=== PATIENT | female | born 1965 | race African-American/Black ===

== ENCOUNTER 2017-02-21 08:08 | Inpatient (IN) ==
[2017-02-21] MEDS ORDERED: SOLU-MEDROL IV ONE (08:32)
[2017-02-21] MEDS ORDERED: NS 1,000 ML IV ONE ×2 (08:33→10:07)
[2017-02-21 08:38] LABS: ALLEN TEST YES; BE 2.2 mmoll (-3.0-3.0); BLOOD TYPE ARTERIAL; DRAW SITE R RADIAL; METHB 1.4 % (0.0-1.5); O2(CT) 16.3 mL/dL (15.0-23.0); PCO2(98.6) 33 mmHg (35-45); SAMPLE BLOOD; SAO2 90.4 % (95.0-100.0); THB 13.4 g/dL (11.5-17.4); pH(98.6) 7.49 (7.35-7.45)
[2017-02-21 08:39] LABS: PO2(98.6) 49 mmHg (60-100)
[2017-02-21 08:40] LABS: MODALITY CANNULA
[2017-02-21 08:47] LABS: INR 1.02; PROTIME 10.7 Seconds (9.2-11.7); PTT 36.5 Seconds (22.0-36.0)
[2017-02-21 08:48] LABS: BASO% 0.9 % (0.0-0.8); EOS# 0.28 X1000 (0.0-0.7); EOS% 1.9 % (0.0-10.0); HEMATOCRIT 36.9 % (37.0-47.0); HEMOGLOBIN 13.2 g/dL (12.0-16.0); IMM GRAN# 0.14 X1000 (0.0-0.04); IMM GRAN% 0.9 % (0.0-0.5); LYMPH# 0.57 X1000 (1.2-3.4); LYMPH% 3.9 % (20.5-51.1); MANUAL DIFF NEEDED? NO; MCHC 35.8 g/dL (33-37); MCV 67.1 FL (81-99); MONO# 0.04 X1000 (0.11-0.59); MONO% 0.3 % (1.7-9.3); NEUT% 92.1 % (42.2-75.2); PLT 188 X1000 (130-400)
[2017-02-21 08:56] LABS: AGAP 20; ALBUMIN 2.5 g/dL (3.5-5.0); ALKALINE PHOSPHATASE 108 U/L (32-104); BUN 13 mg/dL (8-22); CALCIUM 8.9 mg/dL (8.8-10.2); CHLORIDE 92 mmol/L (98-107); CK PROFILE 15 U/L (24-173); COSMO 273; GOT 39 U/L (10-30); GPT 16 U/L (10-36); MAGNESIUM 1.8 mg/dL (1.5-2.7); POTASSIUM 3.2 mmol/L (3.5-5.1); SODIUM 136 mmol/L (136-145); TCO2 24 mmol/L (25-35); TOTAL PROTEIN 7.1 g/dL (6.3-8.3)
[2017-02-21] MEDS ORDERED: VANCOMYCIN 1 GM/NS 1 GM/250 ML IVPB IV ONE (09:25)
[2017-02-21] MEDS ORDERED: KLOR-CON PO ONE (09:31)
[2017-02-21] MEDS: ZOSYN 3.375 GM/NS 3.375 GM/50 ML IVPB IV SCH ×2 (10:00→15:39)
--- NOTE | 2017-02-21 10:18 | PROVIDER DOCUMENTATION ---
This chart was entered by Ko Bartlett Scribe, acting as scribe for Pradip Mariano MD. HPI-Respiratory General - General Chief Complaint: Possible Sepsis-D Stated Complaint: SOB Time Seen by Provider: 02/21/17 08:22 Source: patient Allergies/Adverse Reactions: Patient Allergies Allergy/AdvReac Type Severity Reaction Status Date / Time No Known Allergies Allergy Verified 02/21/17 08:16 Home Medications: Home Medication List Medication Instructions Recorded Confirmed Last Taken Type Azithromycin [Zithromax Z-Malcolm] 250 mg PO DIRECTED #1 pkg 02/10/17 02/21/17 Rx Lisinopril [Zestril] 5 mg PO DAILY #30 tablet 02/10/17 02/21/17 02/21/17 07:00 Rx - History of Present Illness-Resp Nature of Presenting Problem: patient is a 51 y/o F that presents to the ER with 2 days of shortness of breath that has gotten worse. Denies fever/chills, n/v/d, or chest pain. Reports cold symptoms x 1.5 weeks. pt has history of asthma. She received 2 breathing treatments en route. patient is not o2 at home and has not be intubated in the past. Her o2 saturation on arrival was 91% Quality of Pain: reports: tightness Severity in ED: reports: moderate, severe Onset/Duration: reports: gradual, other (1.5 weeks ago) Timing: reports: still present, getting worse Context: reports: recent URI. denies: out of meds Cough Quality/Degree: reports: moderate, dry cough Current Respiratory Medication Therapy: Initiated see nurses note Modifying Factors: worse with: coughing Associated Symptoms: reports: cough, shortness of breath, short of breath, wheezing. denies: fever/chills, flu-like symptoms, nasal congestion, nasal drainage Similar Symptoms Previously?: Yes Recently seen or treated by another doctor?: Yes Review of Systems - Adult - REVIEW OF SYSTEMS - ADULT Constitutional: denies: chills, fever Eyes: reports: no symptoms reported Ears, Nose, Mouth & Throat: denies: ear pain, sinus problem, throat pain Cardiovascular: denies: chest pain, palpitations, syncope Respiratory: reports: cough, shortness of breath, wheezing Gastrointestinal: denies: abdominal pain, nausea, vomiting Genitourinary: reports: no symptoms reported Musculoskeletal: reports: no symptoms reported Integumentary: reports: no symptoms reported Neurological: reports: no symptoms reported Psychiatric: reports: no symptoms reported Endocrine: reports: no symptoms reported Hematologic/Lymphatic: reports: no symptoms reported Allergic/Immunologic: reports: no symptoms reported All Other Systems: Reviewed and Negative Past History - Adult - PAST MEDICAL HISTORY-ADULT Review of Records: reports: Old Records Reviewed, Nursing Assessment Review, Medications Reviewed Cardiovascular: reports: HTN Respiratory: reports: asthma - PRIOR SURGERIES/PROCEDURES Surgical/Procedure History: reports: - IMMUNIZATION STATUS Childhood Immunizations: See Nurse Assessment Flu Vaccine: See Nurse Assessment - FAMILY HISTORY Family History: reviewed, not pertinent - SOCIAL HISTORY Smoking: cigarettes, less than 1 pack/day Alcohol Use Frequency: occasionally Living Situation: family Physical Exam-General - PHYSICAL EXAM-ADULT Initial Vital Signs Reviewed: Yes - CONSTITUTIONAL General Appearance: alert, mild distress - EYES Eyes: PERRL/EOMI, pink conjunctivae - HEAD, EARS, NOSE, MOUTH & THROAT HENMT: normocephalic/atraumatic, moist mucous membranes, normal ENT inspection - NECK Neck: full range of motion, normal inspection. negative: lymphadenopathy, meningismus - RESPIRATORY Respiratory: no accessory muscle use, retractions (mild), increased rate - CARDIOVASCULAR Cardiovascular: no edema, no gallop, tachycardia - GASTROINTESTINAL (ABDOMEN) Abdominal Exam: normal bowel sounds, non tender, soft - MUSCULOSKELETAL Extremity: normal range of motion, normal inspection, no pedal edema - SKIN Integumentary: normal color, warm/dry - NEUROLOGIC Neurologic: grossly normal, no motor/sensory deficits - PSYCHIATRIC Psych/Mental Status: normal mood/affect, normal thought content, normal thought process, oriented x 3 Progress - PLAN OF CARE/RESULTS Progress/Plan/Lab Results: Vital Signs - 8 hr 02/21/17 08:13 Temperature 98.6 F Pulse Rate 151 H Respiratory Rate 39 H Blood Pressure 140/99 O2 Sat by Pulse Oximetry 91 L Laboratory Results - last 24 hr 02/21/17 02/21/17 02/21/17 08:15 08:15 08:15 WBC 14.75 H RBC 5.50 H Hgb 13.2 Hct 36.9 L MCV 67.1 L MCH 24.0 L MCHC 35.8 RDW Std Deviation 20.2 H Plt Count 188 MPV Not Reportable Immature Gran % (Auto) 0.9 H Neut % (Auto) 92.1 H Lymph % (Auto) 3.9 L [place] % (Auto) 0.3 L Eos % (Auto) 1.9 Baso % (Auto) 0.9 H Immature Gran # (Auto) 0.14 H Neut # (Auto) 13.59 H Lymph # (Auto) 0.57 L [place] # (Auto) 0.04 L Eos # (Auto) 0.28 Baso # (Auto) 0.13 PT INR PTT (Actin FS) D-Dimer 3.19 H Specimen Type Sample Site pH pCO2 pO2 HCO3 Base Excess Oxyhemoglobin ABG O2 Sat (Calculated) ABG O2 Saturation ABG Carboxyhemoglobin ABG Methemoglobin Gil Test A-a O2 Difference Total Hemoglobin Lactate Liter Flow Blood Gas Modality FiO2 % Sodium 136 Potassium 3.2 L Chloride 92 L Carbon Dioxide 24 L Anion Gap 20 BUN 13 Creatinine 0.6 Estimated GFR/1.73 m2 > 60 BUN/Creatinine Ratio 22 Glucose 117 H Calculated Osmolality 273 Calcium 8.9 Magnesium 1.8 Total Bilirubin 0.70 AST 39 H ALT 16 Alkaline Phosphatase 108 H Creatine Kinase 15 L Troponin T Ifk-V-Khkpybulnjw Pept Total Protein 7.1 Albumin 2.5 L Globulin 4.6 Albumin/Globulin Ratio 0.5 Plasma Lactate 02/21/17 02/21/17 02/21/17 08:15 08:15 08:15 WBC RBC Hgb Hct MCV MCH MCHC RDW Std Deviation Plt Count MPV Immature Gran % (Auto) Neut % (Auto) Lymph % (Auto) [place] % (Auto) Eos % (Auto) Baso % (Auto) Immature Gran # (Auto) Neut # (Auto) Lymph # (Auto) [place] # (Auto) Eos # (Auto) Baso # (Auto) PT 10.7 INR 1.02 PTT (Actin FS) 36.5 H D-Dimer Specimen Type Sample Site pH pCO2 pO2 HCO3 Base Excess Oxyhemoglobin ABG O2 Sat (Calculated) ABG O2 Saturation ABG Carboxyhemoglobin ABG Methemoglobin Gil Test A-a O2 Difference Total Hemoglobin Lactate Liter Flow Blood Gas Modality FiO2 % Sodium Potassium Chloride Carbon Dioxide Anion Gap BUN Creatinine Estimated GFR/1.73 m2 BUN/Creatinine Ratio Glucose Calculated Osmolality Calcium Magnesium Total Bilirubin AST ALT Alkaline Phosphatase Creatine Kinase Troponin T < 0.010 Asi-D-Efgldgosfoh Pept 2786 H Total Protein Albumin Globulin Albumin/Globulin Ratio Plasma Lactate 02/21/17 02/21/17 08:15 08:25 WBC RBC Hgb Hct MCV MCH MCHC RDW Std Deviation Plt Count MPV Immature Gran % (Auto) Neut % (Auto) Lymph % (Auto) [place] % (Auto) Eos % (Auto) Baso % (Auto) Immature Gran # (Auto) Neut # (Auto) Lymph # (Auto) [place] # (Auto) Eos # (Auto) Baso # (Auto) PT INR PTT (Actin FS) D-Dimer Specimen Type ARTERIAL Sample Site R RADIAL pH 7.49 H pCO2 33 L pO2 49 L* HCO3 26.4 H Base Excess 2.2 Oxyhemoglobin 86.6 L* ABG O2 Sat (Calculated) 16.3 ABG O2 Saturation 90.4 L ABG Carboxyhemoglobin 2.80 H ABG Methemoglobin 1.4 Gil Test YES A-a O2 Difference 109.0 Total Hemoglobin 13.4 Lactate 3.60 H Liter Flow 2.0 Blood Gas Modality CANNULA FiO2 % 28.0 Sodium Potassium Chloride Carbon Dioxide Anion Gap BUN Creatinine Estimated GFR/1.73 m2 BUN/Creatinine Ratio Glucose Calculated Osmolality Calcium Magnesium Total Bilirubin AST ALT Alkaline Phosphatase Creatine Kinase Troponin T Afy-D-Qpucucdmakn Pept Total Protein Albumin Globulin Albumin/Globulin Ratio Plasma Lactate 3.8 H Orders Category Date Time Status Cardiac Monitoring DIRECTED Care 02/21/17 08:20 Active Oxygen Therapy- ED Nursing DIRECTED Care 02/21/17 08:20 Active Saline Loc NOW Care 02/21/17 08:20 Active ANGIOGRAM/PULMONARY ARTERIES [CT] Stat Exams 02/21/17 09:40 Ordered CHEST-2 VIEWS [RAD] Stat Exams 02/21/17 08:20 Taken ABG [RESP] Routine Lab 02/21/17 08:25 Completed BLOOD CULTURE [BLDCUL] Stat Lab 02/21/17 08:52 Uncollected CBC WITH ELECTRONIC DIFF [HEME] Stat Lab 02/21/17 08:15 Completed CK PROFILE [SP CHEM] Stat Lab 02/21/17 08:15 Completed COMPREHENSIVE METABOLIC PANEL [CHEM] Stat Lab 02/21/17 08:15 Completed D-DIMER [CHEM] Stat Lab 02/21/17 08:15 Completed INFLUENZA SCREEN A/B Stat Lab 02/21/17 09:40 Uncollected LACTATE, PLASMA [CHEM] Stat Lab 02/21/17 08:15 Completed MAGNESIUM [CHEM] Stat Lab 02/21/17 08:15 Completed PRO B-NATRIURETIC PEPTIDE Stat Lab 02/21/17 08:15 Completed PROTIME WITH INR [COAG] Stat Lab 02/21/17 08:15 Completed PTT [COAG] Stat Lab 02/21/17 08:15 Completed TROPONIN T Stat Lab 02/21/17 08:15 Completed URINE DRUG SCREEN Stat Lab 02/21/17 09:40 Uncollected urinalysis [URINALYSIS PL W/POSS RFLX CULT] [URINALYSIS Lab 02/21/17 09:41 Uncollected ] Stat 0.9% Sodium Chloride Inj [Ns] 1,000 ml Med 02/21/17 08:33 Discontinued IV 999 mls/hr Methylprednisolone Sod Succ [Solu-Medrol] Med 02/21/17 08:32 Discontinued 125 mg IV NOW ONE Piperacil/Tazobact 3.375 gm/Ns [Zosyn 3.375 gm/Ns] Med 02/21/17 09:30 Active 3.375 gm in 50 ml IV Q6H Potassium Chloride E.r. [Klor-Con] Med 02/21/17 09:31 Discontinued 20 meq PO NOW ONE Vancomycin 1 gm/Ns Med 02/21/17 09:25 Active 1 gm in 250 ml IV NOW EKG [EKG] Stat Ther 02/21/17 08:20 Ordered 0926- aware of xray and treatment plan 0930-hospitalist paged for admission Result Diagrams: 02/21/17 08:15 02/21/17 08:15 - REASSESSMENT Reassessment #1 Time Reassessed: 08:52 Status: improving Reassessment Comment: breathing has improved - EKG 1 Time of EKG reading by physician:: 08:18 EKG Read and Signed by:: Pradip Mariano EKG Interpretation (*Must complete 3 of following elements*): Abnormal Rate: 147 Rhythm: sinus tachycardia [place]: normal [place] Interval: normal ST Wave: normal Comments: LAE - XRAY 1 XRAY Study: Chest Impression: Abnormal XRAY Interpretation: NOHEMI, LLL, and RLL pneumonia - CONSULTS/PCP/HOSPITALIST Notification #1 *Consult/PCP/Hospitalist*: Time Discussed: 10:05 Reason/Comments: bilateral pneumonia Consult Disposition: Will see in ED, Admit Departure - Departure Time of Disposition Decision: 09:28 DIAGNOSIS: Hypoxemia Bilateral pneumonia Qualifiers: Pneumonia type: due to unspecified organism Lung location: unspecified part of lung Qualified Code(s): J18.9 - Pneumonia, unspecified organism Dyspnea Qualifiers: Dyspnea type: shortness of breath Qualified Code(s): R06.02 - Shortness of breath Sepsis Qualifiers: Sepsis type: sepsis due to unspecified organism Qualified Code(s): A41.9 - Sepsis, unspecified organism Disposition: ADMITTED INPATIENT 09 Certified Medical Emergency: Emergent Condition: Stable Referrals and Follow-Ups: None,PCP [Primary Care Provider] - - Critical Care Note Total Time (mins): 45 Critical Care Statement: This patient required my direct personal management to treat or rule out processes, the absence of which, could potentiallly result in sudden, clinically significant life or limb threatening deterioration. This chart was documented by the indicated scribe, (Ko Bartlett, Scribe) and accurately reflects the services I performed and decisions made by me, Pradip Mariano MD, as attested by the provider's signature.
[2017-02-21 10:46] LABS: URINE CULTURE NEEDED? NO; URINE MICRO REVIEW NEEDED? NO; URINE SOURCE CLEAN CATCH
[2017-02-21 10:53] LABS: BILIRUBIN URINE NEGATIVE (NEGATIVE); BLOOD URINE NEGATIVE (NEGATIVE); COLOR YELLOW; GLUCOSE URINE NEGATIVE (NEGATIVE); LEUKOCYTES URINE NEGATIVE (NEGATIVE); NITRITE URINE NEGATIVE (NEGATIVE); PH URINE 6.5; PROTEIN URINE TRACE mg/dL (NEGATIVE); SP GRAVITY URINE 1.011; TURBIDITY URINE CLEAR (CLEAR); UROBILINOGEN URINE NORMAL (NORMAL)
[2017-02-21 10:54] LABS: UR EPITHELIAL CELLS <10 /HPF (<10); URINE BACTERIA NEGATIVE /HPF; URINE RBC <10 /HPF (<10); URINE WBC <10 /HPF (<10)
[2017-02-21 11:01] LABS: UR AMPHETAMINES QUAL NONE DETECTED (NONE DETECT); UR BARBITUATES QUAL NONE DETECTED (NONE DETECT); UR BENZODIAZEPIN QUAL NONE DETECTED (NONE DETECT); UR CANNABINOIDS QUAL NONE DETECTED (NONE DETECT); UR COCAINE QUAL NONE DETECTED (NONE DETECT); UR METHADONE QUAL NONE DETECTED (NONE DETECT); UR OPIATES QUAL NONE DETECTED (NONE DETECT); UR OXYCODONE QUAL NONE DETECTED (NONE DETECT); UR PCP QUAL NONE DETECTED (NONE DETECT)
[2017-02-21] MEDS ORDERED: VANCOMYCIN IV PER PHARMACY MISC SCH ×2 (11:01→15:30)
--- NOTE | 2017-02-21 11:10 | EKG Report ---
Test Performed on : 02/21/2017 08:18:49 AM Test Reason : CP Blood Pressure : / mmHG Vent. Rate : 147 BPM Atrial Rate : 147 BPM P-R Int : 118 ms QRS Dur : 094 ms QT Int : 282 ms P-R-T Axes : 030 033 047 degrees QTc Int : 441 ms Sinus tachycardia. Possible Left atrial enlargement Borderline ECG No previous ECGs available Unconfirmed Result
--- NOTE | 2017-02-21 11:19 | HISTORY AND PHYSICAL ---
PRIMARY CARE PROVIDER: No one. CHIEF COMPLAINT: Shortness of breath. HISTORY OF PRESENT ILLNESS: Patient states that the last week of January she was having some congestion and shortness of breath. At that time, she presented to the ER on with these complaints and was diagnosed with bronchitis. She was sent home with azithromycin and was also diagnosed with influenza A. Patient states she did not take Tamiflu for this. She states that after her azithromycin she felt better for about 2 days and then began feeling bad again. It progressed to the point she has been unable smoke her cigarettes for about 2 weeks now and has severe shortness of breath. She denies any pain. Chest x-ray revealed that she had bilateral bibasilar pneumonia. She has been started on vancomycin and Zosyn. She is afebrile. Her white count is up to 14,000 and her lactate is up to 3.8. She has received 2 L of IV saline bolus. It is of note that she does have an elevated D-dimer of 3.19. Her PO2 was 49 and that was with oxygen. So her O2 has been increased to 6 L nasal cannula. She has had a pulmonary angiogram ordered which I do not have the results of at this time. Influenza screening has also been ordered to determine if she still has influenza A. Given her low PO2 and her shortness of breath we will admit her to [facility] which will also give her a private room if she is positive for influenza A and we will be able to monitor her oxygen status more closely. PAST MEDICAL HISTORY: Hypertension, asthma, duodenal ulcer with GI bleed. Medication noncompliance. PAST SURGICAL HISTORY: section and duodenal ulcer clipping. SOCIAL HISTORY: She drinks 3 beers per day 1 with each male. She smokes 8 cigarettes per day since age of 34. She denies any illicit drug use and lives at home with her fiancee. FAMILY HISTORY: Unknown secondary to being adopted. REVIEW OF SYSTEMS: She states that she has had some vomiting and diarrhea for 2 days, lightheadedness with blurry vision for 2 days and brown thick phlegm that she has been coughing up. ALLERGIES: Codeine causes itching and rash. HOME MEDICATIONS: Lisinopril 5 mg p.o. daily, but apparently she has not been taking medications for over a year. PHYSICAL EXAMINATION: VITAL SIGNS: Temperature is 98.6 degrees, heart rate 151, when in the room it was down to 130, respiratory rate 39, blood pressure 140/99. O2 saturation was 91% on oxygen. HEENT: Atraumatic, normocephalic. Pupils equal, round, reactive to light. Extraocular movements were intact. Mucous membranes are dry. NECK: No JVD or carotid bruits noted. CARDIOVASCULAR: S1-S2, tachycardic rate and rhythm. No rubs, gallops, or murmurs. PULMONARY: Coarse bilaterally. Decreased in the bases. Mild accessory muscle use and work of breathing noted. GASTROINTESTINAL: Soft, nontender, nondistended. Positive bowel sounds x4. EXTREMITIES: No edema noted, +2 dorsalis and radial pulses. NEUROLOGIC: Alert and oriented x4. Moves all extremities equally. LABORATORY DATA: White blood cells 14,000. Hemoglobin 13, hematocrit 36, platelet count 188,000. INR 1.02. PTT is 36.5, D-dimer 3.19, ABGs on 2 L nasal cannula pH 7.49, pCO2 33 , PO2 49, bicarb 26, base excess positive 2.2 with a saturation of 86%. Lactate on ABGs was 3.6 , serum lactate was 3.8. Sodium 136, potassium 3.2, BUN 13, creatinine 0.6, glucose 117, calcium 8.9, magnesium 1.8. Total bilirubin 0.7, AST 39, ALT 16, alkaline phosphatase 108, CK 15, troponin less than 0.01, proBNP is 27, 86, albumin 2.5. Urinalysis pending. Urine drug screen pending. Alcohol, blood alcohol level pending. IMAGING: Chest x-ray, preliminary showed bilateral bibasilar infiltrates, pneumonia. Pulmonary angiograms pending. ASSESSMENT AND PLAN: 1. Sepsis secondary to pneumonia. She has received 2 L IV fluid bolus saline and she will receive normal saline at 125 an hour. She has received vancomycin and Zosyn which will be continued. Blood cultures, urine urinalysis and sputum cultures have been ordered. 2. Acute hypoxemic respiratory failure. She is currently on 6 L nasal cannula. This is likely secondary to her pneumonia but we will have to rule out for pulmonary emboli. She also has a history of tobacco abuse. We will do IV steroids, Xopenex and Atrovent nebs , budesonide and acetylcysteine nebs. Aggressive pulmonary toilet. 3. History of asthma. Her CO2 is actually stable. PO2 is down in the 40s. Again we will continue with nebulizers. 4. Tobacco abuse. Cessation discussed. No nicotine patch for now. 5. Elevated D-dimer with associated shortness of breath. So again a pulmonary angiogram has been ordered and lower extremity Dopplers. There does not appear to be any DVTs in the lower extremities. 6. Recent history of influenza A diagnosed February 10. Patient states that she did not take any Tamiflu so repeat influenza ordered and we will start Tamiflu if positive. 7. History of gastrointestinal bleed and duodenal ulcer. We will start her on Prilosec. 8. Hypertension. Apparently she has not taken any of her medications in a year so we will monitor it for now. She is tachycardic. 9. Alcohol abuse. She drinks 3 beers per day. Alcohol level pending. Monitor for withdrawal symptoms. 10. Vomiting and diarrhea x2 days. Dehydration. Again she will have antiemetics and IV fluid hydration. 11. Medication noncompliance. 12. Deep venous thrombosis prophylaxis. We will do Lovenox. I have seen and examined the patient and I agree with the above plan. I will also do urine strep and legionella antigens and will consult ID. Dictated by BANDAR Aaron for Joe Srivastava MD cc: BANDAR Aaron MD [facility]
--- NOTE | 2017-02-21 11:22 | Diag Imaging Result Document ---
PROCEDURE NAME: ANGIOGRAM/PULMONARY ARTERIES - 02/21/2017 CT CHEST WITH INTRAVENOUS CONTRAST: TECHNIQUE: Dose-reduction protocol. FINDINGS: There is normal opacification of the pulmonary arteries and their major branches. No thoracic aortic aneurysm or dissection. No cardiomegaly. There are evyr-iu-axabzrwjwm enlarged mediastinal lymph nodes. There are several calcified mediastinal and left hilar lymph nodes as well. There are multifocal dense bilateral infiltrates with near complete consolidation of the left upper and lower lobes. Mild emphysematous changes are present. Nodularity to the parenchyma primarily in the lower right lung. However there may be tiny nodules scattered throughout and just difficult to see due to the dense consolidation. IMPRESSION: 1. No pulmonary emboli. 2. Multifocal dense bilateral pneumonia.
[2017-02-21] MEDS: XOPENEX NEB INH SCH ×4 (11:30→23:04)
[2017-02-21] MEDS: ATROVENT NEB INH SCH ×4 (11:30→23:04)
[2017-02-21] MEDS ORDERED: VANCOMYCIN 250 MG in NS 100 ML IV ONE (12:00)
[2017-02-21] MEDS: NS 1,000 ML IV SCH ×2 (12:14→19:53)
[2017-02-21] MEDS: SOLU-MEDROL IV SCH (15:40)
[2017-02-21] MEDS: PULMICORT INH SCH (19:30)
[2017-02-21] MEDS: MUCOMYST 20% INH SCH (19:30)
[2017-02-21] MEDS: TAMIFLU PO SCH ×2 (19:52→21:00)
[2017-02-21] MEDS: MAXIPIME 1 GM/NS 1 GM/50 ML IVPB IV SCH (19:52)
--- NOTE | 2017-02-21 21:42 | CONSULTATION ---
DATE OF CONSULTATION: 02/21/2017 CONCLUSION: The patient has influenza as manifested by a positive swab for influenza A on February 10. The influenza swab today was negative for influenza A and B. She also appears to have a superimposed secondary infection most likely bacterial in nature. The patient also tells me now that she has diarrhea which may be due to Clostridium difficile. RECOMMENDATIONS: I have started the patient on Tamiflu. I have substituted cefepime for Zosyn. I agree with starting vancomycin as well. I ordered a stool for Clostridium difficile toxin. PRESENT ILLNESS: The patient said about 2 weeks ago she started having fever and chills. She eventually started coughing and was bringing up dark sputum. She was seen in the emergency room on February 10. She was given azithromycin. The influenza swab is positive for influenza A as mentioned above. The patient has become progressively more short of breath. She is anorectic. She also has developed diarrhea. [employer]S ASSISTANT HISTORY: The patient is a 1, para 1, AB 0. She delivered her child by . PAST MEDICAL HISTORY: Positive for hypertension, asthma, duodenal ulcer with GI bleed and COPD according to the history and physical dictated on the patient. She has medication noncompliance. PAST SURGICAL HISTORY: Positive for section and duodenal ulcer clipping. SOCIAL HISTORY: The patient is . She has cats for pets. 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 She drinks beer. She smokes cigarettes but denies any illicit use of drugs. She lives at home with her fiancee. She does not have dysuria or flank pain. Her hearing and vision are normal. FAMILY HISTORY: Patient was adopted. REVIEW OF SYSTEMS: Her main positives were the fact that she has been vomiting and has had diarrhea. Also she is very short of breath of breath and she has pleuritic chest pain. She had some blurry vision but she told me tonight that has cleared. ALLERGIES: According to the computer she does not have any allergies. On the patient's history and physical it says that codeine causes her to itch and produces a rash. HOME MEDICATIONS: Lisinopril and azithromycin which she was given at the last emergency room visit prior to the current one. LABORATORY STUDIES: Thus far show a CBC with a white count of 14,750, hemoglobin 13.2, and platelet count 188,000. Blood gases show a pH of 7.49, PO2 of 49 and pCO2 of 30. Creatinine 0.6. GFR is greater than 60. Liver function studies are normal. Sputum shows gram positive cocci and gram stain. Influenza swab was positive for influenza A on February 10. The influenza swab today was negative. Blood cultures are pending. CT scan of the chest shows multifocal dense bilateral pneumonia. Pneumococcal and Legionella urinary antigens are pending. PHYSICAL EXAMINATION: Vital Signs: Temperature is 98.5 degrees, pulse 114, respirations 22, blood pressure 139/93. Patient's weight is listed as 92 pounds. General: The patient appears malnourished. This is a chronically ill and acutely short of breath middle- aged female. She does appear, as mentioned above, dyspneic even lying on the gurney. Head, eyes, ears, nose, and throat: She can hear my spoken words and see near objects. No drainage noted from the nose or ears. Thorax: Increased AP diameter. Lungs: There were bilateral rhonchi and rales. Cardiovascular: Heart rate was rapid and regular. Abdomen: Soft and nontender. Neurologic: Patient is alert. She can move her extremities. There is no tremor. Her sensation is intact to touch. RECOMMENDATIONS: I have ordered a stool for Clostridium difficile toxin. Thank you for the consultation. cc: David Howard MD [facility]
[2017-02-22] MEDS: SOLU-MEDROL IV SCH ×4 (00:20→20:13)
[2017-02-22] MEDS: NORCO-7.5 PO PRN ×2 (01:41→19:47)
[2017-02-22] MEDS: MAXIPIME 1 GM/NS 1 GM/50 ML IVPB IV SCH ×3 (03:12→15:23)
[2017-02-22] MEDS: NS 1,000 ML IV SCH ×3 (03:13→21:24)
[2017-02-22] MEDS: XOPENEX NEB INH SCH ×6 (03:19→23:07)
[2017-02-22] MEDS: ATROVENT NEB INH SCH ×6 (03:19→23:07)
[2017-02-22] MEDS ORDERED: PNEUMOVAX 23 IM ONE (03:34)
[2017-02-22 03:38] LABS: ALLEN TEST YES; BE -1.8 mmoll (-3.0-3.0); BLOOD TYPE ARTERIAL; DRAW SITE R RADIAL; METHB 1.2 % (0.0-1.5); O2(CT) 14.1 mL/dL (15.0-23.0); PCO2(98.6) 39 mmHg (35-45); PO2(98.6) 59 mmHg (60-100); SAMPLE BLOOD; SAO2 92.3 % (95.0-100.0); THB 11.2 g/dL (11.5-17.4); pH(98.6) 7.38 (7.35-7.45)
[2017-02-22 04:30] LABS: MODALITY CANNULA
[2017-02-22 05:53] LABS: BASO% 0.2 % (0.0-0.8); EOS# 0.08 X1000 (0.0-0.7); EOS% 0.4 % (0.0-10.0); HEMATOCRIT 30.2 % (37.0-47.0); HEMOGLOBIN 10.9 g/dL (12.0-16.0); IMM GRAN# 0.18 X1000 (0.0-0.04); IMM GRAN% 0.8 % (0.0-0.5); LYMPH# 0.64 X1000 (1.2-3.4); LYMPH% 2.9 % (20.5-51.1); MANUAL DIFF NEEDED? YES; MCH 24.4 PG (27-31); MCHC 36.1 g/dL (33-37); MCV 67.7 FL (81-99); MONO% 1.8 % (1.7-9.3); NEUT% 93.9 % (42.2-75.2); PLT 126 X1000 (130-400); RBC 4.46 XMIL (4.2-5.4)
[2017-02-22] MEDS: PRILOSEC PO SCH (06:21)
--- NOTE | 2017-02-22 07:03 | PROGRESS NOTE ---
DATE: 02/22/2017 PRESENT ILLNESS: The patient has influenza A infection. This appears to be complicated by a superimposed bacterial pneumonia. The patient also had diarrhea, which may be due to Clostridium difficile toxin. MEDICATIONS: This is day 1 for being on cefepime, vancomycin, and Tamiflu. PHYSICAL EXAMINATION: Vital Signs: Temperature is 97.3 degrees, pulse 103, respirations 18, blood pressure 135/87. General: The patient looks ill, but she does appear to be better than she was last night. She says she is not having as much difficulty breathing, and she has been able to hold down some food and her diarrhea is getting better. Lungs: There bilateral rhonchi and rales. Cardiovascular: Regular heart rate. Abdomen: Soft and nontender. Ears, Nose, and Throat: There are no white patches in the mouth. LABORATORY AND X-RAY: Today the patient's CBC shows a white count of 22,060, hemoglobin 10.9, and platelet count 126,000. The arterial blood gases show a pH of 7.38, a PO2 of 59, and a pCO2 of 39. Creatinine 0.6. GFR is greater than 60. Liver function studies are essentially normal. There is slight elevation of the alkaline phosphatase and AST. Blood and sputum cultures are pending. The patient's influenza swab on February 10 was positive for influenza A. Yesterday the influenza swab was negative for influenza A and B. ASSESSMENT AND PLAN: The patient has influenza complicated by a superimposed infection in the lungs. My plan is to continue her current antimicrobial agents including vancomycin, cefepime, and Tamiflu. I am waiting for the stool Clostridium difficile toxin result. COMORBIDITIES: The patient's comorbidities include cigarette smoking, beer drinking, noncompliance with medication, COPD, and asthma. cc: David Howard MD
[2017-02-22] MEDS: MUCOMYST 20% INH SCH ×2 (07:21→19:17)
[2017-02-22] MEDS: PULMICORT INH SCH (07:21)
[2017-02-22 07:28] LABS: AGAP 14; ALBUMIN 1.8 g/dL (3.5-5.0); ALKALINE PHOSPHATASE 79 U/L (32-104); BUN 16 mg/dL (8-22); CALCIUM 7.8 mg/dL (8.8-10.2); CHLORIDE 104 mmol/L (98-107); COSMO 286; GOT 23 U/L (10-30); GPT 11 U/L (10-36); POTASSIUM 2.5 mmol/L (3.5-5.1); SODIUM 140 mmol/L (136-145); TCO2 22 mmol/L (25-35); TOTAL BILIRUBIN 0.45 mg/dL (0.20-1.00); TOTAL PROTEIN 5.4 g/dL (6.3-8.3)
--- NOTE | 2017-02-22 07:38 | Diag Imaging Result Document ---
PROCEDURE NAME: CHEST-2 VIEWS - 02/21/2017 TWO VIEWS OF THE CHEST: FINDINGS: There is dense alveolar opacification throughout the left lower lobe and in the posterior medial right base. There is some opacification in the left upper lobe as well particularly in the lingula. None of these abnormalities were present on 02/10/2017. IMPRESSION: Pneumonia.
[2017-02-22 07:44] LABS: BANDS 26 % (0-1); LYMPHS 6 % (21-51)
[2017-02-22 07:45] LABS: HYPOCHROM 1+; TARGET CELLS 1+
[2017-02-22] MEDS: TAMIFLU PO SCH ×3 (09:18→20:13)
[2017-02-22] MEDS: POTASSIUM CHLORIDE 60 MEQ in NS 500 ML IV SCH ×2 (09:18→16:43)
[2017-02-22] MEDS: LOVENOX SUBQ SCH (09:18)
--- NOTE | 2017-02-22 09:25 | Diag Imaging Result Document ---
PROCEDURE NAME: CHEST-2 VIEWS - 02/22/2017 CHEST X-RAY 2 VIEWS, 02/22/2017: COMPARISON: 02/21/2017. FINDINGS: There is mild worsening in the patchy alveolar infiltrate in the right upper and middle lobes. There is significant improvement in the density of the left upper lobe infiltrate. Stable complete opacification of the left lung base. No pneumothorax or significant effusion. IMPRESSION: Mixed changes with no significant change overall.
[2017-02-22] MEDS ORDERED: ZOFRAN IV PRN (10:29)
[2017-02-22 10:38] LABS: HIV ANTIBODY SCREEN SEE COMMENTS
[2017-02-22] MEDS: VANCOMYCIN 1,100 MG in NS 250 ML IV SCH (13:13)
--- NOTE | 2017-02-22 15:47 | PROGRESS NOTE ---
DATE: 02/22/2017 SUBJECTIVE: Patient reports feeling a bit better, although she is still complaining of mild shortness of breath. She is able to hold things down and she is not having any more diarrhea. OBJECTIVE: Vital Signs: Temperature 97.8, heart rate 110, respiratory rate 16, blood pressure 137/91, O2 saturation 93% 2 L nasal cannula. General Examination: This is a 51-year-old, female lying in bed, in no acute distress. HEENT: Head is normocephalic, atraumatic. Anicteric sclerae and pale conjunctivae. Mucous membranes moist. Neck: Supple. No JVD noted. No carotid bruits. No lymphadenopathy. No thyromegaly. Cardiovascular Examination: S1, S2 heard. Tachycardic. No murmurs, gallops, or rubs. Respiratory: Examination there is coarse breath sounds and wheezing in both pulmonary jean with decreased global air entry. Patient is not using any accessory muscles or having work of breathing. Abdomen: Soft, nontender to palpation. Bowel sounds present. No organomegaly. Extremities: No clubbing, cyanosis, or edema. Peripheral pulses present in both legs. Neurological: Patient alert and oriented x3. Able to move 4 extremities. Cranial nerves 2-12 grossly normal. LABORATORY DATA: White cell count 22.06, hemoglobin 10.9, hematocrit 30.2, platelets 126. BMP is remarkable for potassium 2.5. ASSESSMENT: 1. Multifocal pneumonia. 2. Influenza infection. 3. Acute hypoxemic respiratory failure. 4. History of asthma. 5. Hypertension. 6. Alcohol abuse. 7. Acute diarrhea. PLAN: The patient is admitted to the hospital because of acute respiratory failure secondary to pneumonia. Because of suspicion for PE, CT angiogram was ordered which basically shows multifocal pneumonia and considering this influenza infection, we have consulted ID. Patient is on vancomycin, cefepime and Tamiflu for that condition. We are going to continue with the same management. As of now, oxygen requirements are going down. At admission, she was requiring 6 L of oxygen. Now, she is requiring 2. We are going to continue with the same management. We are going to continue with DuoNeb with levalbuterol and ipratropium every 4 hours as scheduled. For hypertension, we will continue with same management because blood pressure is under control. For diarrhea, she said that she is not having too much diarrhea and we have for C. difficile toxin tests that we are still waiting. cc: Neymar Laura MD
[2017-02-22] MEDS: MUCINEX PO SCH (21:22)
[2017-02-22 21:23] LABS: ALLEN TEST YES; BE -7.6 mmoll (-3.0-3.0); BLOOD TYPE ARTERIAL; DRAW SITE R BRACHIAL; METHB 1.5 % (0.0-1.5); MODALITY NRB; O2(CT) 14.6 mL/dL (15.0-23.0); PO2(98.6) 52 mmHg (60-100); SAMPLE BLOOD; SAO2 85.6 % (95.0-100.0); THB 12.6 g/dL (11.5-17.4)
[2017-02-22 21:25] LABS: PCO2(98.6) 53 mmHg (35-45)
[2017-02-22] MEDS ORDERED: TUSSIONEX LIQUID PO ONE (21:34)
[2017-02-23] MEDS: MAXIPIME 1 GM/NS 1 GM/50 ML IVPB IV SCH (00:05)
[2017-02-23] MEDS: XOPENEX NEB INH SCH ×5 (03:17→22:43)
[2017-02-23] MEDS: ATROVENT NEB INH SCH ×6 (03:17→22:43)
[2017-02-23] MEDS: NS 1,000 ML IV SCH (05:57)
[2017-02-23] MEDS: PRILOSEC PO SCH ×2 (05:57→06:06)
[2017-02-23] MEDS: ROCEPHIN 1 GM/NS 1 GM/50 ML IVPB IV SCH ×2 (06:53→18:32)
--- NOTE | 2017-02-23 07:01 | PROGRESS NOTE ---
DATE: 02/23/2017 PRESENT ILLNESS: The patient has influenza A infection. In addition, she has a pneumococcal pneumonia. 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 Overall the patient's condition is worse. Her O2 sat dropped over night. MEDICATIONS: This is day 2 of treatment with the patient with her antibiotics. She is on vancomycin and Tamiflu, and I have substituted Rocephin for cefepime. PHYSICAL EXAMINATION: Vital Signs: Temperature is 98.4 degrees, pulse 117, respirations 28, blood pressure 157/105. Generally, this is an ill-appearing middle-aged female. She is having respiratory distress. She is very dyspneic despite being put on a BiPAP mask. Lungs: There were bilateral rhonchi and rales. Cardiovascular: Regular and rapid heart rate. Abdomen: Soft and nontender. Neurologic: The patient is lethargic. She can move her extremities. LABORATORY DATA AND X-RAY: Chest x-ray shows bilateral infiltrates. The urinary antigen for Legionella was negative; however, it was positive for pneumococcus. The patient's HIV antibody was nonreactive. The patient's sputum on Gram stain has gram-positive cocci, which could well be pneumococcus. ASSESSMENT AND PLAN: The patient has influenza complicated by pneumococcal pneumonia and bacteremia. The plan will be to continue vancomycin and Tamiflu and, as I mentioned above, ceftriaxone has been substituted for cefepime. The patient's comorbidities include she is a cigarette smoker. She has COPD. She also has asthma, and she has a history of being noncompliant with medication. She also drinks beer and smokes cigarettes. cc: David Howard MD [facility]
[2017-02-23] MEDS: MUCOMYST 20% INH SCH ×2 (07:17→19:58)
[2017-02-23 08:04] LABS: ALLEN TEST NO; BE -8.2 mmoll (-3.0-3.0); BLOOD TYPE ARTERIAL; DRAW SITE R BRACHIAL; METHB 1.3 % (0.0-1.5); MODALITY BI PAP; O2(CT) 15.4 mL/dL (15.0-23.0); PO2(98.6) 69 mmHg (60-100); SAMPLE BLOOD; SAO2 94.6 % (95.0-100.0); THB 11.9 g/dL (11.5-17.4)
[2017-02-23 08:05] LABS: PCO2(98.6) 51 mmHg (35-45)
[2017-02-23] MEDS ORDERED: LASIX IV ONE ×2 (08:22→08:39)
[2017-02-23] MEDS ORDERED: SODIUM BICARBONATE 8.4% IV PUSH ONE (08:23)
[2017-02-23] MEDS: LOVENOX SUBQ SCH (08:41)
[2017-02-23] MEDS ORDERED: DULCOLAX PR ONE (08:41)
[2017-02-23] MEDS: MUCINEX PO SCH ×2 (08:44→20:33)
[2017-02-23] MEDS: TAMIFLU PO SCH ×2 (08:45→20:33)
[2017-02-23] MEDS ORDERED: REGLAN IV ONE (08:52)
--- NOTE | 2017-02-23 08:53 | Diag Imaging Result Document ---
PROCEDURE NAME: CHEST-PORTABLE - 02/23/2017 PORTABLE CHEST: COMPARISON: Compared to 02/22/2017. FINDINGS: There are dense infiltrates in the mid and lower lungs bilaterally. These are more pronounced than on the prior exam. There is a small left pleural effusion. The heart is not enlarged. IMPRESSION: Worsening bilateral infiltrates.
[2017-02-23] MEDS ORDERED: SOLU-MEDROL IV SCH (09:00)
[2017-02-23] MEDS: POTASSIUM CHLORIDE 20 MEQ/SWI 20 MEQ/100 ML IVPB IV SCH ×2 (09:09→11:14)
[2017-02-23 09:50] LABS: BASO% 0.3 % (0.0-0.8); EOS# 0.02 X1000 (0.0-0.7); EOS% 0.1 % (0.0-10.0); HEMATOCRIT 34.7 % (37.0-47.0); HEMOGLOBIN 12.1 g/dL (12.0-16.0); IMM GRAN# 1.59 X1000 (0.0-0.04); IMM GRAN% 4.2 % (0.0-0.5); LYMPH% 2.1 % (20.5-51.1); MANUAL DIFF NEEDED? YES; MCH 24.1 PG (27-31); MCHC 34.9 g/dL (33-37); MCV 69.1 FL (81-99); MONO# 0.19 X1000 (0.11-0.59); MONO% 0.5 % (1.7-9.3); NEUT% 92.8 % (42.2-75.2); PLT 136 X1000 (130-400); RBC 5.02 XMIL (4.2-5.4)
[2017-02-23 10:03] LABS: ALLEN TEST NO; BE 1.7 mmoll (-3.0-3.0); BLOOD TYPE ARTERIAL; DRAW SITE R BRACHIAL; METHB 1.4 % (0.0-1.5); MODALITY BI PAP; O2(CT) 17.2 mL/dL (15.0-23.0); PCO2(98.6) 45 mmHg (35-45); PO2(98.6) 59 mmHg (60-100); SAMPLE BLOOD; SAO2 94.9 % (95.0-100.0); THB 13.4 g/dL (11.5-17.4); pH(98.6) 7.39 (7.35-7.45)
--- NOTE | 2017-02-23 10:19 | PROGRESS NOTE ---
DATE: 02/23/2017 SUBJECTIVE: Ms. Flynn is a 51-year-old female who is admitted with pneumonia and influenza A, who is being treated with Tamiflu and antibiotics, and is now found to have a bacteremia with gram-positive cocci. Apparently last night, she started having desaturation, more shortness of breath and was found to have a respiratory acidosis and metabolic acidosis. Was on non-rebreather at that time, was placed on BiPAP throughout the night. This morning, any time she attempted to remove the BiPAP to eat or take medication, she would desaturate to the 70s. A stat chest x-ray was obtained, which showed increasing infiltrates and pulmonary edema. Her IV fluids were stopped and she was given Lasix, and for her metabolic acidosis, was given sodium bicarbonate. She will be transferred to ICU for at least 24 hour monitoring and all antibiotics and Tamiflu will be continued. She will stay on BiPAP for now. PHYSICAL EXAMINATION: Vital Signs: Temperature 97.4, heart rate 130, respiratory rate recorded as 20, but it was in the 30s when I was in the room. Blood pressure 181/136, O2 saturation off BiPAP was 71, on BiPAP was 96-99%. General: Ms. Flynn is a 51-year-old, female. She is in mild respiratory distress. She states that her mouth is dry, but otherwise no complaints. HEENT: Atraumatic, normocephalic. Pupils equal, round, reactive to light. Extraocular movements intact. Mucous membranes are dry. Neck: Positive JVD. No carotid bruits. Cardiovascular: S1, S2. Tachycardic rate and rhythm. No rubs, gallops, murmurs. Pulmonary: Crackles throughout, anterior, posteriorly with increased work of breathing on BiPAP. Abdomen: Round, semi-firm. Hypoactive bowel sounds. Nontender. Extremities: No edema noted. +2 dorsalis and radial pulses. LABORATORY DATA: ABGs this morning, 7.20, pCO2 of 51, pO2 of 69, bicarb 18. Base excess negative 8. Saturation 91%. Lactate was 1.6. This was on 100% BiPAP, 29/06. CBC and BMP is pending from today. Yesterday, she had a white blood cell count of 22,000. She also had a potassium of 2.5 yesterday and her proBNP was 3359. IMAGING: Chest x-ray reports worsening bilateral infiltrates. She also has a significant amount of pulmonary edema bilaterally. ASSESSMENT AND PLAN: 1. Acute hypoxemic hypercarbic respiratory failure requiring BiPAP with pulmonary edema. Lasix total of 80 mg received. Will replace with potassium. Will transfer to ICU and continue on nebulizers. 2. Metabolic acidosis. Two amps of sodium bicarbonate, total of 100 mEq. Will repeat ABGs around 10 a.m. 3. Streptococcus Pneumonia. Infectious Disease is following. She is on Rocephin. 4. Recent influenza A. Continue Tamiflu. 5. Streptococcus pneumonia bacteremia. Continue IV antibiotics and Infectious Disease is following. Yesterday, white blood cell count was 22,000. She is afebrile today. Lactate is normal. 6. Hypokalemia. She received 60 mEq of IV potassium yesterday. She will receive 40 today with her Lasix. 7. Hypertension along with tachycardia. We will give a 1 time dose of metoprolol 2.5 mg IV x1. 8. Elevated proBNP and pulmonary edema. Will order echocardiogram to evaluate heart function. 9. Alcohol abuse. No signs or symptoms of withdrawal at this time. She only drinks 3 beers per day. 10. Chronic diarrhea, but has not had a bowel movement since admit and her abdomen is distended, semi-firm with hypoactive bowel sounds. We will do a one time dose of bisacodyl suppository. There was mention of an order for Clostridium difficile, but no sample has been sent. 11. Tobacco abuse cessation discussed. 12. Deep venous thrombosis prophylaxis. Lovenox. 13. Gastrointestinal prophylaxis. Proton pump inhibitor. Dictated by BANDAR Aaron for Neymar Laura MD cc: BANDAR Aaron MD [facility]
[2017-02-23 10:27] LABS: BANDS 12 % (0-1); LYMPHS 6 % (21-51); TARGET CELLS 1+
[2017-02-23 10:33] LABS: AGAP 13; ALBUMIN 2.1 g/dL (3.5-5.0); ALKALINE PHOSPHATASE 123 U/L (32-104); BUN 20 mg/dL (8-22); CALCIUM 7.9 mg/dL (8.8-10.2); CHLORIDE 107 mmol/L (98-107); COSMO 296; GOT 55 U/L (10-30); GPT 13 U/L (10-36); MAGNESIUM 1.9 mg/dL (1.5-2.7); POTASSIUM 4.6 mmol/L (3.5-5.1); SODIUM 148 mmol/L (136-145); TCO2 28 mmol/L (25-35); TOTAL BILIRUBIN 0.35 mg/dL (0.20-1.00)
[2017-02-23] MEDS ORDERED: DIPRIVAN 1% 2,000 MG/200 ML BOTTLE ONE (12:03)
[2017-02-23] MEDS ORDERED: NS 1,000 ML ONE (12:04)
--- NOTE | 2017-02-23 12:40 | CONSULTATION ---
DATE OF CONSULTATION: 02/23/2017 REQUESTING PHYSICIAN: Dr. Neymar Laura. REASON FOR CONSULTATION: Respiratory failure and pneumonia. HISTORY OF PRESENT ILLNESS: Ms. Flynn is a 51-year-old white female, with ongoing tobacco use who presented to the [facility] Emergency Room 02/10/2017. The patient had upper respiratory symptoms and was diagnosed with influenza A. She was discharged on Tamiflu and a Z- Malcolm. The patient returned to the hospital 10 days later with new bilateral infiltrates, leukocytosis, and acute hypoxemic respiratory failure on 2L per nasal cannula. Blood cultures have subsequently returned positive for Streptococcus pneumonias in 2 blood cultures and in her sputum culture. Repeat influenza screen is now negative. The patient's oxygen requirements have continued to increase and her arterial blood gas last night on non-rebreather revealed a pH of 7.20, pCO2 of 53, and a PO2 of 52. She was transferred to the ICU this morning. PAST MEDICAL HISTORY: 1. Asthma/COPD. 2. Hypertension. 3. History of duodenal ulcer. 4. History of medication noncompliance. 5. Status post section. SOCIAL HISTORY: Daily tobacco use. Daily alcohol use. FAMILY HISTORY: Patient was adopted and family history unknown. REVIEW OF SYSTEMS: Reviewed from the chart indicates patient had vomiting and diarrhea for 2 days, along with purulent sputum prior to coming to the emergency room. The patient is currently too short of breath on BiPAP is answer questions. PHYSICAL EXAMINATION: General: Reveals a frail, chronically ill-appearing, white female on BiPAP with moderate work of breathing. Vital Signs: Heart rate 125, respiratory rate 30, blood pressure 153/95, and oxygen saturation 94%. HEENT: Pupils are equal and reactive. Oropharynx evaluation is limited. Neck: Supple. Chest: Reveals diffuse rhonchi bilaterally. Cardiac Examination: Increased rate, regular rhythm. Abdomen: Mild distention with increased tympany. Extremities: Extremities are cool to the touch. LABORATORIES: Arterial blood gas on 100% FiO2, BiPAP of 18/10 reveals a pH of 7.39, pCO2 of 45, PO2 of 59. Chemistry: Sodium 148, potassium 4.6, chloride 107, bicarbonate 28, BUN 20, creatinine 0.5. White blood count 38,000, hemoglobin 12.1, platelet count 136,000. IMPRESSION: A 51-year-old with history of tobacco use, history of asthma, recent treatment for influenza A who returned to the hospital 10 days after her influenza diagnosis. She now has overwhelming streptococcal pneumonia with streptococcal bacteremia. The patient has hypoxemic respiratory failure while on maximal BiPAP therapy. Chest x-ray reveals diffuse bilateral pulmonary infiltrates. RECOMMENDATIONS: 1. Urgent intubation and initiation of mechanical ventilation. 2. Continue antibiotics per Dr. David Howard. 3. Smoking cessation to be discussed if she survives this acute pneumonia. 4. Routine gastric acid suppression. 5. Routine bronchodilators. 6. Additional recommendations pending hospital course. cc: Heriberto Julien MD
[2017-02-23] MEDS: VANCOMYCIN 1,100 MG in NS 250 ML IV SCH (12:56)
[2017-02-23] MEDS: DIPRIVAN 1% 1,000 MG/100 ML BOTTLE IV SCH ×4 (13:01→23:51)
--- NOTE | 2017-02-23 13:16 | Diag Imaging Result Document ---
PROCEDURE NAME: CHEST-PORTABLE - 02/23/2017 AP UPRIGHT CHEST AND ABDOMEN: COMPARISON: Comparison is made to films taken earlier. FINDINGS: Interval placement of an endotracheal tube. The tip is located approximately 4 cm above the julieta. A nasogastric tube overlies the esophagus and stomach and is in good position. There are dense bilateral infiltrates. No change. IMPRESSION: Endotracheal and nasogastric tubes in good position.
[2017-02-23 14:51] LABS: URINE CULTURE NEEDED? NO; URINE MICRO REVIEW NEEDED? NO; URINE SOURCE CATH
[2017-02-23 15:02] LABS: BILIRUBIN URINE NEGATIVE (NEGATIVE); BLOOD URINE NEGATIVE (NEGATIVE); COLOR STRAW; GLUCOSE URINE NEGATIVE (NEGATIVE); LEUKOCYTES URINE NEGATIVE (NEGATIVE); NITRITE URINE NEGATIVE (NEGATIVE); PROTEIN URINE NEGATIVE (NEGATIVE); SP GRAVITY URINE 1.007; TURBIDITY URINE CLEAR (CLEAR); UROBILINOGEN URINE NORMAL (NORMAL)
[2017-02-23 15:04] LABS: UR EPITHELIAL CELLS <10 /HPF (<10); URINE BACTERIA NEGATIVE /HPF; URINE RBC <10 /HPF (<10); URINE WBC <10 /HPF (<10)
--- NOTE | 2017-02-23 15:26 | ECHO REPORT ---
ORDER DATE: 02/23/2017 INTERPRETING PHYSICIAN: Dr. Vinnie Edouard. ECHOCARDIOGRAPHIC MEASUREMENTS: 1. Interventricular septum 1.0 cm. 2. Left ventricular posterior wall 1.1 cm. 3. Diastolic diameter 4.3 cm. 4. Left atrium 2.6 cm. 5. Aorta 2.9 cm. SUMMARY OF THE 2-DIMENSIONAL IMAGIN. Normal left ventricular cavity size. Estimated ejection fraction of 35%-40%. There is anterior and anteroseptal hypokinesis. 2. Aortic valve leaflets are trileaflet. Mitral valve was normal. Tricuspid valve was normal. Pulmonic valve was normal. 3. There is no aortic stenosis or regurgitation. 4. There is trace mitral regurgitation. Trace tricuspid regurgitation. 5. Trace pulmonary regurgitation. 6. Peak velocity across the tricuspid valve was 2 m/sec. 7. There is no pericardial effusion or obvious intracardiac mass or thrombus seen. cc: MD Elina Kyle CRNP
[2017-02-23] MEDS: SOLU-MEDROL IV SCH (20:33)
[2017-02-23] MEDS: TYLENOL PO PRN (20:33)
[2017-02-23] MEDS: ATIVAN IV PRN (21:30)
[2017-02-24] MEDS: DIPRIVAN 1% 1,000 MG/100 ML BOTTLE IV SCH ×5 (03:06→19:43)
[2017-02-24] MEDS: ATIVAN IV PRN ×3 (03:11→19:42)
[2017-02-24] MEDS: ATROVENT NEB INH SCH ×6 (03:59→22:45)
[2017-02-24] MEDS: XOPENEX NEB INH SCH ×6 (04:00→22:45)
[2017-02-24] MEDS: TYLENOL PO PRN ×3 (04:03→22:05)
[2017-02-24 05:03] LABS: BLOOD TYPE ARTERIAL; SAMPLE BLOOD
[2017-02-24 05:04] LABS: ALLEN TEST YES; BE 3.3 mmoll (-3.0-3.0); DRAW SITE R RADIAL; METHB 1.3 % (0.0-1.5); O2(CT) 16.8 mL/dL (15.0-23.0); PCO2(98.6) 45 mmHg (35-45); PO2(98.6) 102 mmHg (60-100); SAO2 98.5 % (95.0-100.0); SRATE 18 BPM; THB 12.4 g/dL (11.5-17.4); TVOL 500 mL; pH(98.6) 7.41 (7.35-7.45)
[2017-02-24 05:05] LABS: MODALITY VENTILATOR
[2017-02-24] MEDS: ROCEPHIN 1 GM/NS 1 GM/50 ML IVPB IV SCH ×2 (06:00→18:02)
[2017-02-24] MEDS: PRILOSEC PO SCH (06:00)
[2017-02-24 06:15] LABS: BASO% 0.3 % (0.0-0.8); EOS# 0.12 X1000 (0.0-0.7); EOS% 0.4 % (0.0-10.0); HEMATOCRIT 30.4 % (37.0-47.0); HEMOGLOBIN 10.5 g/dL (12.0-16.0); IMM GRAN# 0.55 X1000 (0.0-0.04); LYMPH# 0.74 X1000 (1.2-3.4); LYMPH% 2.6 % (20.5-51.1); MANUAL DIFF NEEDED? YES; MCH 24.1 PG (27-31); MCHC 34.5 g/dL (33-37); MCV 69.7 FL (81-99); MONO# 0.08 X1000 (0.11-0.59); MONO% 0.3 % (1.7-9.3); NEUT% 94.4 % (42.2-75.2); PLT 133 X1000 (130-400); RBC 4.36 XMIL (4.2-5.4)
[2017-02-24 06:26] LABS: BANDS 24 % (0-1); LYMPHS 4 % (21-51); MONO 2 % (1-9)
[2017-02-24 06:27] LABS: HYPOCHROM 1+
[2017-02-24 06:29] LABS: AGAP 16; ALBUMIN 1.7 g/dL (3.5-5.0); ALKALINE PHOSPHATASE 84 U/L (32-104); BUN 24 mg/dL (8-22); CALCIUM 7.9 mg/dL (8.8-10.2); CHLORIDE 105 mmol/L (98-107); COSMO 294; GOT 47 U/L (10-30); GPT 9 U/L (10-36); MAGNESIUM 2.1 mg/dL (1.5-2.7); POTASSIUM 3.9 mmol/L (3.5-5.1); SODIUM 146 mmol/L (136-145); TCO2 25 mmol/L (25-35); TOTAL BILIRUBIN 0.34 mg/dL (0.20-1.00); TOTAL PROTEIN 5.3 g/dL (6.3-8.3)
--- NOTE | 2017-02-24 07:20 | Diag Imaging Result Document ---
PROCEDURE NAME: CHEST-PORTABLE - 02/24/2017 PORTABLE CHEST X-RAY: COMPARISON: 02/23/2017. FINDINGS: Stable endotracheal tube and nasogastric tube in good position. Lung volumes are improved. There is some decrease in density of the diffuse bilateral infiltrates. Heart size remains normal. IMPRESSION: Improvement from prior.
[2017-02-24] MEDS: MUCOMYST 20% INH SCH ×2 (08:03→19:11)
[2017-02-24] MEDS: LOVENOX SUBQ SCH (08:33)
[2017-02-24] MEDS: TAMIFLU PO SCH ×2 (08:33→20:27)
[2017-02-24] MEDS: SOLU-MEDROL IV SCH ×2 (08:33→20:27)
[2017-02-24] MEDS: MUCINEX PO SCH (08:33)
[2017-02-24] MEDS ORDERED: SORBITOL NG ONE (09:51)
[2017-02-24] MEDS ORDERED: NS 500 ML IV ONE (10:37)
--- NOTE | 2017-02-24 10:47 | PROGRESS NOTE ---
DATE: 02/24/2017 SUBJECTIVE: Mrs. Flynn is a 51-year-old female who is currently sedated via propofol after mechanical ventilation with intubation yesterday. Her vital signs are stable. It appears she still has not had a bowel movement. Will need to give her something for that. Slow mechanical ventilation weaning per Dr. Julien. OBJECTIVE: Vital Signs: Temperature 97.9 degrees, heart rate 110, sinus tachycardia, respiratory rate 18-24, blood pressure is 97-104 over 60s to 70s, O2 saturation 97% on mechanical ventilation. General: Ms. Flynn is a 51-year-old female who is currently sedated. Cardiovascular: S1, S2. Tachycardic rate and rhythm. No rubs, gallops, or murmurs. Pulmonary: Much improved. Some mild crackles noted. No work of breathing given that she is sedated with mechanical ventilation settings. She is on 70% FiO2, AC 18, 500 tidal volume, PEEP of 8. Neurologic : Sedated. Pupils are equal and reactive. Skin: Warm, dry, intact. Extremities: No edema. There are +2 dorsalis and radial pulses. LABORATORY DATA: White blood cells 28,000, down from 38,000, hemoglobin 10, hematocrit 30, platelet count 133,000. ABGs on AC 18 90%, 500 tidal volume, PEEP of 8. She had a pH 7.41, pCO2 45, PO2 102, bicarb 27, base excess 3.3, saturation 95%, lactate 1.7. Sodium 146, potassium 3.9, BUN 24, creatinine 0.5, glucose 96, calcium 7.9, AST 47, ALT 9, total bilirubin 0.34, albumin is 1.7. IMAGING: Chest x-ray from today pulmonary edema much improved. The infiltrates have also improved bilaterally. ASSESSMENT AND PLAN: 1. Acute hypoxemic hypercarbic respiratory failure, now with mechanical ventilation. Dr. Julien is following. CO2 and PO2 are now normalized with the assistance of mechanical ventilation. Continue with nebulizers. 2. Metabolic acidosis, resolved. 3. Streptococcus pneumoniae Pneumonia. Continue on antibiotics. Dr. Howard is following. 4. Recent influenza A. Continue Tamiflu. 5. Streptococcus bacteremia. Again continue with IV antibiotics. White count got up to 38,000 yesterday. There was probably reaction involved. Lactate is normal. She did run a low grade fever up to 99, but she is being followed by Dr. Howard. Continue IV antibiotics. 6. Hypokalemia, resolved. 7. Hypertension with tachycardia. Blood pressure is much improved after sedation was initiated by propofol. She is still tachycardic with a rate in the one-teens. 8. Acute systolic congestive heart failure. Echocardiogram yesterday revealed that she had a 30 to 40% ejection fraction. She had pulmonary edema on her chest x-ray. She responded well to Lasix with 3 L plus via the beck catheter. Will consult cardiology for further work up. 9. Alcohol abuse. No withdrawal at this time. 10. History of chronic diarrhea but she has been constipated with no bowel movement since admission. She received Dulcolax suppository. I am but has not had a bowel movement. We will do a dose of sorbitol. 11. Tobacco abuse. Cessation discussed. 12. Deep venous thrombosis prophylaxis. Lovenox. 13. Gastrointestinal prophylaxis. Proton pump inhibitor. 14. Severe protein calorie malnutrition. She does have a gastric tube. After intubation we will need to start tube feeds for enteral nutrition. Her albumin level was 1.7. Dictated by BANDAR Aaron for Neymar Laura MD cc: BANDAR Aaron MD [facility]
[2017-02-24] MEDS: PROTONIX IV SCH ×2 (10:58→21:52)
[2017-02-24] MEDS: SODIUM CHLORIDE 0.9% INJ SCH (10:58)
--- NOTE | 2017-02-24 12:13 | CONSULTATION ---
DATE OF CONSULTATION: 02/24/2017 INDICATION: Congestive heart failure. HISTORY OF PRESENT ILLNESS: This any is a 51-year-old, white female with a history of hypertension, asthma and previous duodenal ulcer. She presented for evaluation on the with shortness of breath. Reportedly she had a history of flu back in January. She was administered Tamiflu but did not take this. She reportedly took some other antibiotics including azithromycin. She had some improvement over a couple of days and then apparent worsening around that point. She subsequently presented and chest x-ray suggested a bibasilar pneumonia, elevated white count with an elevated lactate. Over the last couple of days she has deteriorated from a respiratory standpoint and was ultimately intubated. Echocardiogram suggested a reduced EF in the range of 35- 40%. Presently, she is on the ventilator. All history is obtained through the chart as she is currently on propofol. PAST MEDICAL HISTORY: 1. Hypertension. 2. Asthma. 3. Duodenal ulcer with previous GI bleed. SOCIAL HISTORY: She drinks 3 beers per day. She smokes 8 cigarettes per day since the age of 34. No illicit drug use. She apparently lives with [facility]. REVIEW OF SYSTEMS: At this point, is unobtainable secondary patient is currently in a sedated status. FAMILY HISTORY: As well as unobtainable secondary to intubated status. PHYSICAL EXAMINATION: Vital Signs: She has been afebrile during the duration of this hospitalization. Heart rates have been in the low 100s to 110s predominantly. More recently, her blood pressure has been low in the 90s to 100s systolic but previous to that she had systolics in the 140s to once 70s. General: No acute distress. Again she is intubated. HEENT: She has moist oropharynx. She has poor dentition. Eye examination is pink conjunctivae. White sclerae. Neck: Examination shows no obvious thyromegaly or thyroid tenderness. Cardiovascular: She sounds to be in a regular rhythm although it is mildly tachycardic rate. She has no increased work of breathing. Presently, she is breathing with the ventilator. She has no lower extremity edema. Warm and well perfused lower extremities. Chest: Coarse breath sounds heard diffusely with rales heard at both bases. Again no increased work of breathing. Abdomen: Soft, nontender, nondistended. Bowel sounds were heard. Skin: Warm and dry throughout. She has no obvious rashes. Neurologic/Psychiatric: Examinations are unable to be performed as the patient is currently sedated and on the ventilator. PERTINENT DATA: Pulmonary arteriogram demonstrated no emboli but evidence of multifocal dense bilateral pneumonias. Echocardiogram that was checked yesterday demonstrated an EF of 35-40 with anterior and anterior septal hypokinesis. Trace mitral and tricuspid regurgitation was identified. No aortic valve abnormalities. Her laboratory data shows a white count that has been as high as 38. Today it is 28, hematocrit is 30, platelet count is 133,000. She does have a bandemia present with 68% neutrophils, 24% bands. ABG shows a pH of 7.41, pCO2 of 4,5 PO2 of 102. Her FiO2 today is 90%. Sodium is 146, potassium 3.9, BUN 24, creatinine is 0.5. Her proBNP was 3359 on the . Her albumin is 1.7. ASSESSMENT: 1. Apparent new onset systolic dysfunction. 2. Sepsis with Strep pneumonia identified in the sputum and the blood. 3. Hypoxemic respiratory failure. PLAN: Patient is currently being supported from a pulmonary standpoint. We will add in digoxin at a dose of 0.125 per her OG-tube. Otherwise we will not add any other medications as her blood pressure is somewhat limiting. We will consider ischemia evaluations at the time the patient is extubated. cc: Marty Callejas MD
[2017-02-24] MEDS: LANOXIN PO SCH (12:47)
[2017-02-24] MEDS: VANCOMYCIN 1,600 MG in NS 250 ML IV SCH (13:47)
--- NOTE | 2017-02-24 20:19 | PROGRESS NOTE ---
DATE: 02/24/2017 PRESENT ILLNESS: The patient has pneumococcal pneumonia with bacteremia superimposed on the influenza A infection. MEDICATIONS: This is day 3 of treatment with vancomycin, Tamiflu and Rocephin. PHYSICAL EXAMINATION: Vital Signs: Temperature is 100 degrees, pulse 131, respirations 34, blood pressure 105/70. Generally: This is an ill-appearing middle-aged female. She is intubated and sedated. Lungs: Bilateral rhonchi. Cardiovascular: Regular heart rate. Abdomen: Soft and nontender. Ears, nose and throat: Patient has orotracheal and nasogastric tubes down. LABORATORY AND X-RAY: Chest x-ray shows improvement in her infiltrates. Complete blood count today had a white count of 28,140, hemoglobin 12.5 and platelet count 133,000. Creatinine was 0.5, GFR is greater than 60. Blood gases show a pH of 7.41, a PO2 of 102, and pCO2 of 45. ASSESSMENT AND PLAN: 1. Patient has pneumococcal pneumonia and bacteremia superimposed on influenza. My plan will be to continue the 3 medications, namely Tamiflu, vancomycin and ceftriaxone. 2. Patient's comorbidity include cigarette smoking, chronic obstructive pulmonary disease, asthma. She does drink beer and cigarette smoking. Also, there is a history of being noncompliant with medications. cc: David Howard MD
[2017-02-25] MEDS: ATIVAN IV PRN ×4 (00:04→23:17)
[2017-02-25] MEDS: DIPRIVAN 1% 1,000 MG/100 ML BOTTLE IV SCH ×7 (00:04→23:17)
[2017-02-25] MEDS: ATROVENT NEB INH SCH ×6 (02:52→22:41)
[2017-02-25] MEDS: XOPENEX NEB INH SCH ×6 (02:52→22:42)
[2017-02-25 04:41] LABS: ALLEN TEST YES; BE 5.4 mmoll (-3.0-3.0); BLOOD TYPE ARTERIAL; DRAW SITE R RADIAL; METHB 1.6 % (0.0-1.5); O2(CT) 9.9 mL/dL (15.0-23.0); PCO2(98.6) 47 mmHg (35-45); PO2(98.6) 53 mmHg (60-100); SAMPLE BLOOD; SAO2 91.6 % (95.0-100.0); SRATE 15 BPM; THB 7.9 g/dL (11.5-17.4); TVOL 400 mL; pH(98.6) 7.42 (7.35-7.45)
[2017-02-25 04:43] LABS: MODALITY VENTILATOR
[2017-02-25 05:20] LABS: AGAP 9; ALBUMIN 1.6 g/dL (3.5-5.0); ALKALINE PHOSPHATASE 83 U/L (32-104); BUN 26 mg/dL (8-22); CALCIUM 7.6 mg/dL (8.8-10.2); CHLORIDE 105 mmol/L (98-107); COSMO 296; GOT 25 U/L (10-30); GPT 8 U/L (10-36); MAGNESIUM 2.4 mg/dL (1.5-2.7); POTASSIUM 4.3 mmol/L (3.5-5.1); SODIUM 142 mmol/L (136-145); TCO2 28 mmol/L (25-35); TOTAL BILIRUBIN 0.25 mg/dL (0.20-1.00); TOTAL PROTEIN 5.7 g/dL (6.3-8.3)
[2017-02-25 05:30] LABS: BASO% 0.4 % (0.0-0.8); EOS# 0.01 X1000 (0.0-0.7); HEMATOCRIT 29.3 % (37.0-47.0); HEMOGLOBIN 10.3 g/dL (12.0-16.0); IMM GRAN# 0.64 X1000 (0.0-0.04); IMM GRAN% 2.4 % (0.0-0.5); LYMPH# 0.86 X1000 (1.2-3.4); LYMPH% 3.2 % (20.5-51.1); MANUAL DIFF NEEDED? YES; MCH 24.6 PG (27-31); MCHC 35.2 g/dL (33-37); MCV 70.1 FL (81-99); MONO# 0.21 X1000 (0.11-0.59); MONO% 0.8 % (1.7-9.3); NEUT% 93.2 % (42.2-75.2); PLT 197 X1000 (130-400); RBC 4.18 XMIL (4.2-5.4)
[2017-02-25] MEDS: ROCEPHIN 1 GM/NS 1 GM/50 ML IVPB IV SCH ×2 (06:01→18:02)
[2017-02-25 07:13] LABS: BANDS 16 % (0-1); HYPOCHROM 2+; LYMPHS 4 % (21-51)
--- NOTE | 2017-02-25 07:51 | Diag Imaging Result Document ---
PROCEDURE NAME: CHEST-PORTABLE - 02/25/2017 ERECT AP PORTABLE CHEST AT 0520 HOURS: FINDINGS: There is an endotracheal tube with its tip in the thoracic inlet and an NG tube which passes below the diaphragm. There is diffuse pulmonary opacity in the right lung and more coarse opacity with areas of bullous or cavity formation on the left, particularly the left upper lobe. The inspiration is less optimal than on for 02/24/2017 which accentuates the abnormalities on the left. Compared to the CT scan of 02/21/2017, the possibility of lung abscess and cavity formation is suggested. There is also an apparent cavity in the right apex which is not apparent on the CT scan. The possibility of septic emboli cannot be excluded. IMPRESSION: Alveolar edema and generalized pneumonia particularly in the left upper lobe with cavity/abscess formation as described above.
[2017-02-25] MEDS: MUCOMYST 20% INH SCH ×2 (08:01→19:09)
[2017-02-25] MEDS: TAMIFLU PO SCH ×2 (08:34→21:20)
[2017-02-25] MEDS: LOVENOX SUBQ SCH (08:35)
[2017-02-25] MEDS: SOLU-MEDROL IV SCH (08:35)
[2017-02-25] MEDS: LANOXIN PO SCH (08:35)
[2017-02-25] MEDS: TYLENOL PO PRN ×2 (11:15→23:33)
[2017-02-25] MEDS: SODIUM CHLORIDE 0.9% INJ SCH (11:30)
[2017-02-25] MEDS: PROTONIX IV SCH ×2 (11:30→21:49)
[2017-02-25] MEDS: MORPHINE IV PRN ×3 (12:27→23:33)
--- NOTE | 2017-02-25 12:35 | EKG Report ---
Test Performed on : 02/25/2017 11:12:59 AM Test Reason : ICU. Not ordered in [place] Blood Pressure : / mmHG Vent. Rate : 119 BPM Atrial Rate : 119 BPM P-R Int : 118 ms QRS Dur : 098 ms QT Int : 312 ms P-R-T Axes : 044 060 -19 degrees QTc Int : 438 ms Sinus tachycardia. Cannot rule out Anterior infarct , age undetermined Abnormal ECG When compared with ECG of 21-FEB-2017 08:18, No significant change was found Confirmed by Jace DUBOIS, Ryan Doss ([id number]) on 02/25/2017 9:58:15 PM
--- NOTE | 2017-02-25 13:00 | PROGRESS NOTE ---
DATE: 02/25/2017 SUBJECTIVE: Ms. Flynn remains sedated and on the in on the ventilator. OBJECTIVE: Vital Signs: She has been febrile. Most recent 101.7 at 11:25. Heart rate continues to be in the 100s to 110s. Blood pressure most recently is 143/88. General: No acute distress. Cardiovascular: She is in a tachycardic but regular rhythm. She has no obvious murmurs. She has no lower extremity edema. Warm and well perfused lower extremities. Chest: Has coarse breath sounds. Notably, she also has somewhat shallow breath sounds. She is somewhat tachypneic presently. She has coarse breath sounds heard throughout with some rales. Abdomen: Soft and nontender. Skin: Warm and dry throughout without any rashes PERTINENT DATA: White count continues to be quite elevated at 26.9, hematocrit 29.3, platelet count is 197,000. She continues to have a left shift with a bandemia but does appear to be in improved bandemia at 16 today with 80% neutrophils. Her AA gradient is down to 387 from 483 yesterday. Her sodium is 142, potassium 4.3, her BUN is 26, creatinine 0.5. Albumin is 1.6. ASSESSMENT: 1. Severe sepsis. 2. Respiratory failure. 3. Reduced ejection fraction. PLAN: We initiated digoxin yesterday in treatment of her heart failure. She does not seem to have acute heart failure presently. She currently is septic, seems to be improving somewhat based on her laboratory evaluations but continues to be quite ill. Chest x-ray results were reviewed. If Infectious Disease considers the need for transesophageal echo, we may consider to do that after she is extubated and respiratory status has improved. Chest x-ray suggests of the possibility of septic emboli. cc: Marty Callejas MD
[2017-02-25] MEDS: VANCOMYCIN 1,600 MG in NS 250 ML IV SCH (13:27)
--- NOTE | 2017-02-25 15:37 | PROGRESS NOTE ---
DATE: 02/25/2017 SUBJECTIVE: Patient is sedated and intubated. OBJECTIVE: Vital Signs: Temperature 101.7 degrees, heart rate 113, respiratory rate 33, blood pressure 143/88, O2 saturation 95% on room air. General Examination: This is a chronically ill- looking and frail, female, lying in bed, in no acute distress. HEENT : Head is normocephalic, atraumatic. Anicteric sclerae and pale conjunctivae. Mucous membranes moist. Neck: Supple. No JVD noted. No carotid bruits. No lymphadenopathy. No thyromegaly. Cardiovascular Examination: S1-S2 heard, tachycardic. No murmurs, gallops, or rubs. Regular rate and rhythm. Respiratory Examination: Coarse breath sound getting worse in both bases. Patient not using any accessory muscles or having work of breathing on mechanical ventilator with FiO2 of 70%. Extremities: No clubbing, cyanosis, or edema. Peripheral pulses present in both legs. Neurological Examination: Patient is sedated and intubated. LABORATORY DATA: White cell count 26.91, hemoglobin 10.3, hematocrit 29.3, platelets 197,000. ABG shows pCO2 of 47, pH 7.42. BMP unremarkable. Glucose 225. ASSESSMENT/PLAN: 1. Acute hypercapnic respiratory failure with now mechanical ventilator. Pulmonary is following this patient. The patient is not doing any good. She if the oxygen is 70s or 80s p.o. We will keep an eye on her in the Intensive Care Unit. 2. Streptococcal pneumonia. We will continue with antibiotics. Dr. Howard from Infectious Disease is following this patient. 3. Recent influenza A. We will continue with Tamiflu. 4. Streptococcus bacteremia as per Infectious Disease, Dr. Howard. 5. Hypertension. Blood pressure is better controlled. 6. Acute systolic congestive heart failure. Echo shows 30-40% ejection fraction and Cardiology is following. 7. Alcohol abuse. No withdrawal at this time. Overall the prognosis is very poor. Patient still requiring high amounts of oxygen, still spiking fever. Palliative Care consult has been requested and family updated about current situation and prognosis of patient. Will continue to monitor closely in the ICU. cc: MD AKOSUA Ferraro
--- NOTE | 2017-02-25 15:55 | Extremity Venous Study ---
PROCEDURE NAME: Venous U/S Bilateral Legs - 02/21/2017 REFERRING PHYSICIAN: Carola. READING PHYSICIAN: Julienne. SURVEILLANCE OFFICER: Berkley. INDICATION: Shortness of breath and elevated D-dimer. FINDINGS: The deep and superficial veins of both lower extremities were imaged throughout their course. All are compressible with forward flow. No thrombus is identified. INTERPRETATION: No evidence of deep or superficial venous thrombosis in either lower extremity. cc: MD Elian Aguirre CRNP
--- NOTE | 2017-02-25 16:54 | PALLIATIVE CARE CONSULTATION ---
DATE: 02/25/2017 REQUESTING PHYSICIAN: Dr. Serrano. REASON FOR CONSULTATION: Goals of care. HISTORY OF PRESENT ILLNESS: Ms. Flynn is a 51-year-old, female with a past medical history of asthma, COPD, hypertension, duodenal ulcer, and medical noncompliance. She was most recently admitted on 02/21/2017 after presenting to the ED with severe shortness of breath. It is of note that she was seen in the ER on 02/10/2017 and diagnosed with a bronchitis, as well as influenza A. She was discharged with azithromycin and Tamiflu, but stated on admission that she did not take the Tamiflu. Her chest x-ray in the ED revealed bilateral bibasilar pneumonia. Blood cultures have returned positive for Streptococcus pneumonia, as well as a sputum culture has returned positive for the same. Her influenza screen is now negative. Since admission, her oxygen requirements have continued to increase to the point of requiring intubation. Currently she is receiving 80% FiO2 and the patient's nurse states that with any movement her O2 saturations would drop into the 70s and 80s. Currently Ms. Flynn's boboance and sister are at the bedside. The palliative care team has been consulted to assist with goals of care. REVIEW OF SYSTEMS: Unable to review. PAST MEDICAL HISTORY: See HPI. PAST SURGICAL HISTORY: 1. section. 2. Duodenal ulcer clipping. SOCIAL HISTORY: Prior to this admission, she drank alcohol daily, as well as a daily smoker. Drug use has been denied. She lives locally with her fiance. FAMILY HISTORY: Unknown as the patient is adopted. PHYSICAL EXAM: General: This is a 51-year-old female, who is sedated and intubated requiring mechanical ventilation. She does not appear to be in any acute distress. HEENT: Atraumatic, normocephalic. Neck: Trachea is midline. Cardiovascular: Increased rate, regular rhythm. Pulmonary: Coarse breath sounds auscultated throughout. Abdomen: Soft. Bowel sounds are active. Extremities: Pulses are palpable. No edema noted. Skin: Warm and dry. IMPRESSION: This is a 51-year-old, female with a past medical history as listed above in the HPI. I met with the patient's fiance and sister to discuss goals of care. We also discussed Ms. Flynn's current state of health and prognosis. All questions were answered. In regards to advanced directive and [id number], Ms. Flynn does not have either document. The fiance states that typically Ms. Flynn's sister would be the one to make all medical decisions. Ms. Flynn will remain a full code. As previously mentioned, she does not show any signs and symptoms of distress. The palliative care team will continue to follow. Dictated by BANDAR Nagel for Heriberto Julien MD cc: BANDAR Nagel MD [facility]
--- NOTE | 2017-02-25 16:58 | PROGRESS NOTE ---
DATE: 02/25/2017 PRESENT ILLNESS: The patient has influenza A infection which has been complicated by a pneumococcal pneumonia with bacteremia. MEDICATIONS: This is day 4 of treatment with vancomycin. Tamiflu and Rocephin. For the 1st 2 days the patient was actually receiving cefepime and then switched over to Rocephin. PHYSICAL EXAMINATION: Vital Signs: Temperature is 97.3 degrees, pulse 111, respirations 34, blood pressure 156/98. General: This is an ill-appearing, middle-aged female. She is intubated and sedated. Cardiovascular: Regular and rapid heart rate. Lungs: Bilateral rhonchi and rales. Cardiovascular: Heart rate is regular. Abdomen: Soft and nontender. Neurologic: The patient is obtunded. X-RAY/LABORATORY DATA: [place] [address], hemoglobin 10.3, and platelet count 197,000. Blood gases show a pH of 7.42, a PO2 of 53 and a pCO2 of 47. The patient's creatinine is 0.5 with a GFR of greater than 60. ASSESSMENT AND PLAN: The patient has influenza A with superimposed pneumonia and bacteremia. The plan is to continue with current antibiotics namely Rocephin, vancomycin and Tamiflu. COMORBIDITIES: Include cigarette smoking, chronic obstructive pulmonary disease, asthma, alcohol consumption and a history of being noncompliant with medications. cc: David Howard MD
[2017-02-26] MEDS: ATIVAN IV PRN ×3 (02:38→22:03)
[2017-02-26] MEDS: ATROVENT NEB INH SCH ×6 (02:44→23:20)
[2017-02-26] MEDS: XOPENEX NEB INH SCH ×6 (02:44→23:21)
[2017-02-26] MEDS: DIPRIVAN 1% 1,000 MG/100 ML BOTTLE IV SCH ×6 (03:13→22:37)
[2017-02-26] MEDS: MORPHINE IV PRN ×4 (04:21→18:23)
[2017-02-26 04:35] LABS: ALLEN TEST YES; BE 8.8 mmoll (-3.0-3.0); BLOOD TYPE ARTERIAL; DRAW SITE R RADIAL; O2(CT) 13.4 mL/dL (15.0-23.0); PO2(98.6) 57 mmHg (60-100); SAMPLE BLOOD; SAO2 93.5 % (95.0-100.0); SRATE 15 BPM; THB 10.5 g/dL (11.5-17.4); TVOL 400 mL; pH(98.6) 7.41 (7.35-7.45)
[2017-02-26 04:38] LABS: BASO% 0.3 % (0.0-0.8); EOS# 0.37 X1000 (0.0-0.7); EOS% 1.3 % (0.0-10.0); HEMATOCRIT 31.7 % (37.0-47.0); HEMOGLOBIN 10.8 g/dL (12.0-16.0); IMM GRAN# 1.04 X1000 (0.0-0.04); IMM GRAN% 3.6 % (0.0-0.5); LYMPH# 1.37 X1000 (1.2-3.4); LYMPH% 4.8 % (20.5-51.1); MANUAL DIFF NEEDED? YES; MCH 24.1 PG (27-31); MCHC 34.1 g/dL (33-37); MCV 70.8 FL (81-99); MONO# 0.29 X1000 (0.11-0.59); PLT 245 X1000 (130-400); RBC 4.48 XMIL (4.2-5.4)
[2017-02-26 04:52] LABS: MODALITY VENTILATOR
[2017-02-26 04:53] LABS: PCO2(98.6) 55 mmHg (35-45)
[2017-02-26 05:04] LABS: AGAP 11; ALBUMIN 1.9 g/dL (3.5-5.0); ALKALINE PHOSPHATASE 90 U/L (32-104); BANDS 6 % (0-1); BUN 18 mg/dL (8-22); CALCIUM 7.7 mg/dL (8.8-10.2); CHLORIDE 104 mmol/L (98-107); COSMO 289; EOS 2 % (1-10); GOT 18 U/L (10-30); GPT 9 U/L (10-36); HYPOCHROM 1+; LYMPHS 4 % (21-51); MAGNESIUM 2.2 mg/dL (1.5-2.7); MONO 2 % (1-9); POTASSIUM 4.1 mmol/L (3.5-5.1); SODIUM 144 mmol/L (136-145); TARGET CELLS 1+; TCO2 29 mmol/L (25-35); TOTAL BILIRUBIN 0.28 mg/dL (0.20-1.00); TOTAL PROTEIN 5.8 g/dL (6.3-8.3)
[2017-02-26] MEDS: ROCEPHIN 1 GM/NS 1 GM/50 ML IVPB IV SCH ×2 (06:21→18:16)
[2017-02-26] MEDS: LANOXIN PO SCH ×2 (07:26→09:30)
[2017-02-26] MEDS: TYLENOL PO PRN (07:27)
[2017-02-26] MEDS: TAMIFLU PO SCH ×3 (07:27→21:23)
[2017-02-26] MEDS: LOVENOX SUBQ SCH (07:27)
--- NOTE | 2017-02-26 07:48 | Diag Imaging Result Document ---
PROCEDURE NAME: CHEST-PORTABLE - 02/26/2017 PORTABLE CHEST: COMPARISON: 02/25/2017. FINDINGS: The endotracheal tube remains in good position. The nasogastric tube overlies the esophagus and stomach. There are bilateral infiltrates. The appearance of the chest is quite similar to that of the prior exam except for in the lung bases where the infiltrates are sightly more dense. I believe there are small effusions. IMPRESSION: Mild interval worsening.
[2017-02-26] MEDS: MUCOMYST 20% INH SCH ×2 (08:04→19:56)
[2017-02-26] MEDS ORDERED: LACTULOSE PO ONE (09:10)
--- NOTE | 2017-02-26 10:22 | PROGRESS NOTE ---
DATE: 02/26/2017 SUBJECTIVE: Patient is sedated and intubated, looking tachypneic. OBJECTIVE: Vital Signs: Temperature 100.0 degrees, heart rate 133, respiratory rate 36 and blood pressure 148/91, O2 saturation 97% on mechanical ventilator. General Examination: This is a chronically ill-looking and frail, female, lying in bed in no acute distress. HEENT: Head is normocephalic, atraumatic. Anicteric sclerae and pale conjunctivae. Mucous membranes dry. Neck: No JVD noted. No carotid bruits. No lymphadenopathy. No thyromegaly. The patient is intubated. Cardiovascular exam: S1, S2 heard. Tachycardic. No murmurs, gallops, or rubs. Regular rate and rhythm. Respiratory exam: Coarse breath sounds. The same in comparing with yesterday in both bases. Patient is not using any accessory muscles or having work of breathing on mechanical ventilator with FiO2 100%. Extremities: No clubbing, cyanosis, or edema. Peripheral pulses present in both legs. Neurological exam: Patient is sedated and intubated. LABORATORY DATA: White cell count is 28.65, hemoglobin 10.8, hematocrit 31.7, platelets 245. ABG shows pH 7.41, pCO2 55, PO2 of 57. That is on FiO2 100% and BMP unremarkable. X-RAY: X-ray is worsening interval. ASSESSMENT AND PLAN: 1. Acute hypercapnic respiratory failure on ventilator. Unfortunately, this patient is not doing any good. Patient is back to FIO2 100% oxygen. Every time we try to move according to nursing staff, oxygen saturation drops dramatically, even on ventilator. The patient is being followed by pulmonary. Will follow recommendation. 2. Multifocal pneumonia. We will continue with antibiotics. Currently she is receiving vancomycin, ceftriaxone and Tamiflu. Dr. Howard from infectious disease is following this patient. Help appreciated. 3. Recent influenza type A. We will continue with Tamiflu by nasogastric tube. 4. Hypertension. Blood pressure is well controlled in the range of 130s and 140s. 5. Acute systolic congestive heart failure. Last echocardiogram showed 30% to 40% ejection fraction. Cardiology following. 6. Alcohol abuse, aware. Patient is not having withdrawal symptoms at this time. Overall the prognosis of this patient continues to be poor. Farrukh, who was at the bedside, was explained in depth about her current prognosis. We plan to continue with the same management over the weekend, and on Tuesday we will discuss about goals of care with him considering that she has been in the unit for 7 days intubated at that time. Also, nursing staff reported that patient, although she is not having any residual, abdomen is getting distended, so we are going to go and order abdominal x-ray and also we will try lactulose because patient has not had any bowel movement for the last 4-5 days. cc: Neymar Laura MD
[2017-02-26] MEDS: SODIUM CHLORIDE 0.9% INJ SCH (10:31)
[2017-02-26] MEDS: PROTONIX IV SCH ×2 (10:31→22:03)
[2017-02-26] MEDS: SOLU-MEDROL IV SCH (10:31)
--- NOTE | 2017-02-26 10:59 | Diag Imaging Result Document ---
PROCEDURE NAME: ABDOMEN FLAT/UPRIGHT - 02/26/2017 PORTABLE UPRIGHT ABDOMEN AND SUPINE TWO VIEWS: FINDINGS: Nasogastric tube overlies the esophagus and stomach. There are dense bibasilar infiltrates. The bowel loops are not dilated. No organomegaly. No abnormal abdominal calcifications. IMPRESSION: 1. No definite abdominal abnormality. 2. Dense bibasilar infiltrates.
[2017-02-26] MEDS ORDERED: LASIX IV ONE (11:33)
[2017-02-26] MEDS ORDERED: MORPHINE IV ONE (11:34)
--- NOTE | 2017-02-26 12:47 | Diag Imaging Result Document ---
PROCEDURE NAME: CHEST-PORTABLE - 02/26/2017 PORTABLE CHEST: COMPARISON: Compared to 02/26/2017. FINDINGS: There are bilateral diffuse infiltrates. There are also pleural effusions. Endotracheal and nasogastric tubes remain. The heart is not enlarged. There has been very little change in appearance of the chest considering the differences in technique. IMPRESSION: Persistent bilateral infiltrates with small effusions with no interval improvement.
[2017-02-26] MEDS: VANCOMYCIN 1,600 MG in NS 250 ML IV SCH (13:20)
[2017-02-26] MEDS: OFIRMEV 1000 MG/ISOTONIC SOLN 1,000 MG/100 ML BOTTLE IV SCH ×2 (13:21→18:16)
[2017-02-26 17:51] LABS: ALLEN TEST YES; BE 11.6 mmoll (-3.0-3.0); BLOOD TYPE ARTERIAL; DRAW SITE R RADIAL; METHB 1.7 % (0.0-1.5); O2(CT) 14.1 mL/dL (15.0-23.0); PO2(98.6) 76 mmHg (60-100); SAMPLE BLOOD; SAO2 97.4 % (95.0-100.0); SRATE 18 BPM; THB 10.6 g/dL (11.5-17.4); TVOL 450 mL
[2017-02-26 17:54] LABS: MODALITY VENTILATOR; PCO2(98.6) 62 mmHg (35-45)
[2017-02-27] MEDS: MORPHINE IV PRN ×5 (00:16→23:23)
[2017-02-27] MEDS: ATIVAN IV PRN (02:46)
[2017-02-27] MEDS: DIPRIVAN 1% 1,000 MG/100 ML BOTTLE IV SCH ×6 (02:46→23:23)
[2017-02-27] MEDS: OFIRMEV 1000 MG/ISOTONIC SOLN 1,000 MG/100 ML BOTTLE IV SCH ×2 (03:15→07:47)
[2017-02-27] MEDS: XOPENEX NEB INH SCH ×6 (03:38→22:41)
[2017-02-27] MEDS: ATROVENT NEB INH SCH ×6 (03:38→22:41)
[2017-02-27 04:38] LABS: BASO% 0.3 % (0.0-0.8); EOS# 0.28 X1000 (0.0-0.7); EOS% 0.7 % (0.0-10.0); HEMATOCRIT 31.1 % (37.0-47.0); HEMOGLOBIN 10.2 g/dL (12.0-16.0); IMM GRAN# 0.55 X1000 (0.0-0.04); IMM GRAN% 1.4 % (0.0-0.5); LYMPH# 1.08 X1000 (1.2-3.4); LYMPH% 2.8 % (20.5-51.1); MANUAL DIFF NEEDED? YES; MCH 23.7 PG (27-31); MCHC 32.8 g/dL (33-37); MCV 72.3 FL (81-99); MONO# 0.32 X1000 (0.11-0.59); MONO% 0.8 % (1.7-9.3); MPV 11.1 FL (7.4-10.4); PLT 221 X1000 (130-400)
[2017-02-27 04:50] LABS: AGAP 10; ALBUMIN 1.5 g/dL (3.5-5.0); ALKALINE PHOSPHATASE 95 U/L (32-104); BUN 13 mg/dL (8-22); CALCIUM 7.3 mg/dL (8.8-10.2); CHLORIDE 99 mmol/L (98-107); COSMO 285; GOT 17 U/L (10-30); GPT 8 U/L (10-36); MAGNESIUM 1.9 mg/dL (1.5-2.7); POTASSIUM 3.7 mmol/L (3.5-5.1); SODIUM 142 mmol/L (136-145); TCO2 33 mmol/L (25-35); TOTAL PROTEIN 5.6 g/dL (6.3-8.3)
[2017-02-27 04:52] LABS: ALLEN TEST YES; BE 10.6 mmoll (-3.0-3.0); BLOOD TYPE ARTERIAL; DRAW SITE R RADIAL; METHB 1.3 % (0.0-1.5); O2(CT) 17.2 mL/dL (15.0-23.0); PO2(98.6) 72 mmHg (60-100); SAMPLE BLOOD; SAO2 96.1 % (95.0-100.0); SRATE 18 BPM; THB 13.2 g/dL (11.5-17.4); TVOL 450 mL; pH(98.6) 7.39 (7.35-7.45)
[2017-02-27 04:53] LABS: BANDS 2 % (0-1); LYMPHS 6 % (21-51); MONO 6 % (1-9)
[2017-02-27 04:53] LABS: MODALITY VENTILATOR; PCO2(98.6) 63 mmHg (35-45)
[2017-02-27] MEDS: ROCEPHIN 1 GM/NS 1 GM/50 ML IVPB IV SCH ×2 (06:09→18:17)
[2017-02-27] MEDS: LOVENOX SUBQ SCH (07:47)
[2017-02-27] MEDS: MUCOMYST 20% INH SCH ×2 (07:56→19:41)
[2017-02-27] MEDS: SOLU-MEDROL IV SCH (08:05)
[2017-02-27] MEDS: LANOXIN PO SCH (08:05)
[2017-02-27] MEDS: TAMIFLU PO SCH ×2 (08:05→20:50)
--- NOTE | 2017-02-27 08:53 | Diag Imaging Result Document ---
PROCEDURE NAME: CHEST-1 VIEW - 02/27/2017 PORTABLE CHEST: Compared to 02/26/2017. FINDINGS: Endotracheal tube and nasogastric tube remain in place. There are diffuse bilateral infiltrates which are similar in extent to the previous exam. Infiltrates appear mildly less dense at the lower lungs compared to the previous exam. There is a small to medium left pleural effusion. There is no pneumothorax seen. Heart size is normal. IMPRESSION: Diffuse bilateral infiltrates and small to medium left pleural effusion. Compared to previous exam, the infiltrates at the lower lungs appear slightly less dense.
[2017-02-27] MEDS: PROTONIX IV SCH ×2 (09:44→21:50)
--- NOTE | 2017-02-27 12:06 | PROGRESS NOTE ---
DATE: 02/27/2017 SUBJECTIVE: Patient is sedated and intubated. OBJECTIVE: Vital Signs: Temperature is 100.8 degrees with a heart rate of 118, respiratory rate 35. Blood pressure 123/77. O2 saturation 97% on mechanical ventilator. General Examination: This is a chronically ill-looking and frail, 51-year-old, female, looking older than her age, lying in bed, in mild respiratory distress. HEENT: Head is normocephalic and atraumatic. Anicteric sclerae and pale conjunctivae. Mucous membranes are dry. Neck: No JVD noted. No carotid bruits. No lymphadenopathy. No thyromegaly. Cardiovascular Examination: S1 and S2 heard. Tachycardic. No murmurs, gallops, or rubs. Regular rate and rhythm. Respiratory Examination : Coarse breath sounds are still present in both bases. The patient is not using any accessory muscles or having work of breathing. Extremities: No clubbing, cyanosis, or edema. Peripheral pulses present in both legs. Neurological Examination: Patient is sedated and intubated. Laboratory Data: The white cell count is 38.23, hemoglobin 10.2, hematocrit 31.1, platelets 221,000. ABG shows pH 7.39, pCO2 63, ventilator at 80% FiO2. The BMP was unremarkable. ASSESSMENT AND PLAN: 1. Acute hypercapnic respiratory failure, on ventilator. CO2 is still high and is not improving. Now, she is requiring 80% of oxygen so at this point, we are going to continue with the same management. 2. Multifocal pneumonia. We will continue with vancomycin, ceftriaxone, and Tamiflu. Dr. Howard from infectious disease is following this patient. 3. Recent influenza type A. We will continue with Tamiflu via nasogastric tube. Unfortunately, she is still spiking fever. We will continue with the same management. 4. Acute systolic congestive heart failure. Last echocardiogram shows 35-40% ejection fraction. We will continue with the same management. Cardiology is following as well. 5. Alcohol abuse. Aware. 6. Overall, the prognosis of this patient is poor, that she is not responding to the current treatment. She is spiking fever. We talked with the family, especially about her current situation. They are aware of the bad condition that she is experiencing. We will continue to follow her in the intensive care unit. cc: Neymar Laura MD
--- NOTE | 2017-02-27 13:23 | Diag Imaging Result Document ---
PROCEDURE NAME: CT ABD/PELVIS W/ IV CONT ONLY - 02/27/2017 CT ABDOMEN AND PELVIS WITH IV CONTRAST ONLY: FINDINGS: Exam performed with intravenous contrast only per request of the referring provider. A dose reduction protocol was used. No comparison exam. There is cavitary infiltrate at the visualized left lung base. There is infiltrate at the visualized right lung base. There is a small left pleural effusion. There is hepatomegaly with fatty infiltration of the liver. There is an approximately 2 x 1 cm low density lesion at the dome of the liver. There is a 1 cm low-density lesion at the inferior right lobe of liver. Density measurements on the liver lesions are nonspecific as to whether a solid or cystic. The spleen is unremarkable. There is nonspecific mild fullness of the bilateral adrenal glands. There is no pancreatic mass or inflammation identified. The gallbladder carmona appear mildly thickened. There are no calcified gallstones seen. There is a 3 mm nonobstructing stone at the upper left kidney. The bilateral kidneys enhance homogeneously except for a tiny right renal cyst. There is no hydronephrosis. There are no substantially enlarged lymph nodes identified. There is no evidence of bowel obstruction. There is apparent hazy mild thickening of small bowel carmona which may relate to mild enteritis or anasarca. There is a small amount of ascites, which is located primarily in the pelvis. There is no abscess identified. There is no free air seen. IMPRESSION: 1. Cavitary infiltrate at left lung base. Infiltrate at right lung base. Small left pleural effusion. 2. Hepatomegaly with fatty infiltration of the liver. Two low-density liver lesions which are nonspecific. 3. Nonobstructing stone in left kidney. No hydronephrosis. Nonspecific mild fullness of adrenal glands. 4. No bowel obstruction. Mild hazy small-bowel wall thickening which may relate to mild enteritis or anasarca. 5. Small amount of ascites, which is located primarily in the pelvis. No abscess. No free air. [facility]
[2017-02-27] MEDS: VANCOMYCIN 1 GM/NS 1 GM/250 ML IVPB IV SCH (16:12)
[2017-02-27] MEDS: SODIUM CHLORIDE 0.9% INJ SCH (21:50)
[2017-02-28] MEDS: ATIVAN IV PRN ×8 (00:58→20:09)
[2017-02-28] MEDS: VANCOMYCIN 1 GM/NS 1 GM/250 ML IVPB IV SCH ×2 (02:20→13:57)
[2017-02-28] MEDS: MORPHINE IV PRN ×4 (02:54→22:12)
[2017-02-28] MEDS: ATROVENT NEB INH SCH ×6 (03:39→22:57)
[2017-02-28] MEDS: XOPENEX NEB INH SCH ×6 (03:40→22:58)
[2017-02-28] MEDS: DIPRIVAN 1% 1,000 MG/100 ML BOTTLE IV SCH ×5 (04:27→20:10)
[2017-02-28 04:36] LABS: ALLEN TEST YES; BE 13.9 mmoll (-3.0-3.0); BLOOD TYPE ARTERIAL; DRAW SITE R RADIAL; METHB 2.2 % (0.0-1.5); O2(CT) 14.3 mL/dL (15.0-23.0); PO2(98.6) 110 mmHg (60-100); SAMPLE BLOOD; SAO2 98.8 % (95.0-100.0); SRATE 18 BPM; THB 10.6 g/dL (11.5-17.4); TVOL 450 mL; pH(98.6) 7.46 (7.35-7.45)
[2017-02-28 04:39] LABS: MODALITY VENTILATOR; PCO2(98.6) 56 mmHg (35-45)
[2017-02-28 05:01] LABS: BASO% 0.4 % (0.0-0.8); EOS# 0.18 X1000 (0.0-0.7); EOS% 0.4 % (0.0-10.0); HEMATOCRIT 29.4 % (37.0-47.0); HEMOGLOBIN 10.5 g/dL (12.0-16.0); IMM GRAN# 0.62 X1000 (0.0-0.04); IMM GRAN% 1.4 % (0.0-0.5); LYMPH# 1.22 X1000 (1.2-3.4); LYMPH% 2.7 % (20.5-51.1); MANUAL DIFF NEEDED? YES; MCH 25.8 PG (27-31); MCHC 35.7 g/dL (33-37); MCV 72.2 FL (81-99); MONO# 0.51 X1000 (0.11-0.59); MONO% 1.1 % (1.7-9.3); PLT 243 X1000 (130-400); RBC 4.07 XMIL (4.2-5.4)
[2017-02-28 05:12] LABS: BANDS 16 % (0-1); HYPOCHROM OCCASIONAL; LYMPHS 2 % (21-51)
[2017-02-28 05:16] LABS: AGAP 11; ALBUMIN 0.9 g/dL (3.5-5.0); ALKALINE PHOSPHATASE 110 U/L (32-104); BUN 15 mg/dL (8-22); CALCIUM 7.4 mg/dL (8.8-10.2); CHLORIDE 92 mmol/L (98-107); COSMO 273; POTASSIUM 4.4 mmol/L (3.5-5.1); SODIUM 136 mmol/L (136-145); TCO2 33 mmol/L (25-35); TOTAL BILIRUBIN 0.23 mg/dL (0.20-1.00); TOTAL PROTEIN 5.8 g/dL (6.3-8.3)
[2017-02-28 05:42] LABS: GOT 22 U/L (10-30); GPT 7 U/L (10-36)
[2017-02-28] MEDS: ROCEPHIN 1 GM/NS 1 GM/50 ML IVPB IV SCH ×2 (06:02→18:09)
--- NOTE | 2017-02-28 06:34 | Diag Imaging Result Document ---
PROCEDURE NAME: CHEST-PORTABLE - 02/28/2017 PORTABLE CHEST: COMPARISON: Compared to 02/27/2017. FINDINGS: The endotracheal tube remains in good position. There are diffuse bilateral infiltrates. There may be a cavity in the mid left lung. There is a small left pleural effusion. No interval improvement in the chest compared to the prior exam. IMPRESSION: Stable chest.
[2017-02-28] MEDS: MUCOMYST 20% INH SCH ×2 (07:30→20:03)
[2017-02-28 08:06] LABS: INR 1.02; PROTIME 10.7 Seconds (9.2-11.7)
[2017-02-28] MEDS: TAMIFLU PO SCH ×2 (08:09→20:10)
[2017-02-28] MEDS: LOVENOX SUBQ SCH (08:09)
[2017-02-28] MEDS: LANOXIN PO SCH (08:09)
[2017-02-28] MEDS ORDERED: NS 250 ML ONE (08:13)
[2017-02-28] MEDS ORDERED: LASIX IV ONE (09:30)
[2017-02-28] MEDS: OFIRMEV 1000 MG/ISOTONIC SOLN 1,000 MG/100 ML BOTTLE IV PRN ×2 (09:48→19:19)
[2017-02-28] MEDS: SODIUM CHLORIDE 0.9% INJ SCH ×2 (10:10→22:12)
[2017-02-28] MEDS: PROTONIX IV SCH ×2 (10:10→22:12)
--- NOTE | 2017-02-28 10:31 | Diag Imaging Result Document ---
PROCEDURE NAME: CHEST-PORTABLE - 02/28/2017 PORTABLE CHEST: COMPARISON: 02/28/2017. FINDINGS: Interval placement of a right-sided PICC line. The tip overlies the right atrium. The endotracheal tube is in good position. A nasogastric tube overlies the esophagus and stomach. There are diffuse bilateral infiltrates. There may be a cavity in the mid left lung. There is a [id number] sized left pleural effusion. The overall appearance is similar to that of the prior exam. IMPRESSION: No interval improvement.
--- NOTE | 2017-02-28 13:01 | PROGRESS NOTE ---
DATE: 02/28/2017 SUBJECTIVE: Ms. Flynn continues to be sedated, on the ventilator. OBJECTIVE: Vital signs: Most recent temperature is 99.7 degrees. Most recent febrile episode was 100.8 on the at 3:12 a.m. Heart rate has been in the 130s more recently. Blood pressure 140/80. General: She is in no acute distress. Sedated and on the ventilator. Cardiovascular: She is in a tachycardic but regular rate. She has no obvious murmurs. She has no S3. She has no lower extremity edema. Chest: Exam has coarse breath sounds throughout. She has no increased work of breathing. Abdomen: Soft, nontender, nondistended. She has no obvious organomegaly. Skin: Warm and dry throughout without any rashes PERTINENT DATA: Her white count is up to 44.6 today from 38 on the . Hematocrit is 29.4, platelet count 243,000. She continues to have a significant bandemia of 16 today. ABG shows a pH of 7.46, pCO2 of 56, PO2 of 110. Her AA gradient is roughly stable over the last couple of days. Sodium 136, potassium 4.4, BUN 15, creatinine 0.3. ASSESSMENT: 1. Severe sepsis. 2. Mild reduction in ejection fraction. PLAN: Patient does seem to be worsening somewhat. White count is increasing. Over the last couple of days she appears to have required an escalated amount of O2. Her AA gradient has increased as well. Continue with supportive care. cc: Marty Callejas MD
--- NOTE | 2017-02-28 17:03 | PROGRESS NOTE ---
DATE: 02/28/2017 SUBJECTIVE: Patient is sedated and intubated. OBJECTIVE: Vital Signs: Temperature 99.7 degrees, heart rate 132, respiratory 28, blood pressure 120/77, O2 saturation 97% on mechanical ventilator. General examination: This a chronically ill-looking and very frail 51-year-old female looking older than her age lying in bed in mild respiratory distress intubated. HEENT: Head is normocephalic, atraumatic. Anicteric sclerae and pale conjunctivae. Mucous membranes dry. Neck: Supple. No JVD noted. No carotid bruits. No lymphadenopathy. No thyromegaly. Cardiovascular: S1, S2 heard. Tachycardic. No murmurs, gallops, or rubs. Regular rate and rhythm. Respiratory Examination: Coarse breath sounds still present in both bases. Patient is not using any accessory muscles or having work of breathing. Abdomen: Soft, nontender to palpation. Bowel sounds present. Extremities: No clubbing, cyanosis, or edema. Peripheral pulses present in both legs. Neurological: Patient is sedated and intubated. LABORATORY DATA: White cell count 44.59, hemoglobin 10.5, hematocrit 29.4, platelets 243,000. ABG shows pH 7.46, pCO2 56 and BMP is okay. ASSESSMENT AND PLAN: 1. Acute hypercapnic respiratory failure on ventilator. Unfortunately the CO2 is still high and she is requiring high amounts of oxygen. Back and forth for the last 3-4 days she has been between 80 and 100% of oxygen FiO2. At this time she is on FiO2 100%. Also she is spiking mild fever so I think this patient is not doing good. Patient's family was informed yesterday about the prognosis of . 2. Multifocal pneumonia. Patient is on vancomycin and ceftriaxone and Tamiflu. Dr. Howard from infectious disease is following this patient. Will see if he would like to change antibiotic or not. 3. Recent influenza A. Will continue with Tamiflu by nasogastric tube. 4. Acute systolic congestive heart failure. We are aware of this. Cardiology has been following this patient as well. 5. Alcohol abuse aware. Overall the prognosis of this patient is good because she is intubated for last 6 days and she is still requiring high amounts of oxygen and also she is still looking very fatigued and the family reported that even though with those medications the patient is not responding to the medication. At this point will continue with same management and will see what Dr. Howard has to say as well as pulmonary. cc: Neymar Laura MD
--- NOTE | 2017-02-28 22:49 | PROGRESS NOTE ---
DATE: 02/28/2017 PRESENT ILLNESS: The patient has influenza A infection complicated by pneumococcal pneumonia and bacteremia. MEDICATIONS: This is day 7 of treatment with vancomycin, Rocephin and Tamiflu. PHYSICAL EXAMINATION: Vital Signs: Temperature is 100, pulse 127, respirations 29, blood pressure 147/90. General: This is a very ill-appearing, young female. She is in no acute distress. She is intubated and sedated. Lungs: Clear to auscultation. Cardiovascular: Regular heart rate. Extremities: Peripheral pulses were not palpable. The hands and feet were cool. Abdomen: Soft and not tender. LAB AND X-RAY: The patient's blood gases had a pH of 7.46, a PO2 of 110, a pCO2 of 56. Creatinine 0.3. GFR is greater than 60. Sputum and blood cultures are pending. CBC shows a white count of 44,590, hemoglobin 10.5, and platelet count 243,000. Chest x-ray shows a L lung cavity and pleural effusion. ASSESSMENT AND PLAN: Patient has an overwhelming pulmonary process with Tamiflu and pneumococcus. COMORBIDITIES: Include cigarette smoking, COPD, asthma, alcohol consumption. cc: David Howard MD MTDD
[2017-03-01] MEDS: DIPRIVAN 1% 1,000 MG/100 ML BOTTLE IV SCH ×6 (00:08→21:06)
[2017-03-01] MEDS: ATIVAN IV PRN ×3 (00:08→23:52)
[2017-03-01] MEDS: OFIRMEV 1000 MG/ISOTONIC SOLN 1,000 MG/100 ML BOTTLE IV PRN ×3 (02:36→17:22)
[2017-03-01] MEDS: MORPHINE IV PRN ×2 (02:36→20:30)
[2017-03-01] MEDS: VANCOMYCIN 1 GM/NS 1 GM/250 ML IVPB IV SCH (03:04)
[2017-03-01] MEDS: XOPENEX NEB INH SCH ×6 (03:44→23:22)
[2017-03-01] MEDS: ATROVENT NEB INH SCH ×6 (03:44→23:22)
[2017-03-01 04:41] LABS: ALLEN TEST YES; BE 15.1 mmoll (-3.0-3.0); BLOOD TYPE ARTERIAL; DRAW SITE R RADIAL; METHB 1.8 % (0.0-1.5); O2(CT) 14.8 mL/dL (15.0-23.0); PO2(98.6) 112 mmHg (60-100); SAMPLE BLOOD; SAO2 98.9 % (95.0-100.0); SRATE 20 BPM; THB 10.9 g/dL (11.5-17.4); TVOL 370 mL; pH(98.6) 7.29 (7.35-7.45)
[2017-03-01 04:43] LABS: MODALITY VENTILATOR; PCO2(98.6) 94 mmHg (35-45)
[2017-03-01 05:48] LABS: HEMATOCRIT 28.9 % (37.0-47.0); MCH 23.6 PG (27-31); MCHC 31.1 g/dL (33-37); MCV 75.9 FL (81-99); MPV 11.7 FL (7.4-10.4); RBC 3.81 XMIL (4.2-5.4)
[2017-03-01] MEDS: ROCEPHIN 1 GM/NS 1 GM/50 ML IVPB IV SCH ×2 (06:08→18:00)
[2017-03-01 06:16] LABS: AGAP 9; ALBUMIN 1.5 g/dL (3.5-5.0); ALKALINE PHOSPHATASE 102 U/L (32-104); BUN 14 mg/dL (8-22); CALCIUM 7.7 mg/dL (8.8-10.2); CHLORIDE 100 mmol/L (98-107); COSMO 292; GOT 12 U/L (10-30); GPT 7 U/L (10-36); POTASSIUM 3.6 mmol/L (3.5-5.1); SODIUM 145 mmol/L (136-145); TCO2 36 mmol/L (25-35); TOTAL BILIRUBIN 0.24 mg/dL (0.20-1.00); TOTAL PROTEIN 5.5 g/dL (6.3-8.3)
[2017-03-01] MEDS: LOVENOX SUBQ SCH (08:07)
[2017-03-01] MEDS: TAMIFLU PO SCH ×2 (08:07→20:30)
[2017-03-01] MEDS: LANOXIN PO SCH (08:07)
--- NOTE | 2017-03-01 08:15 | Diag Imaging Result Document ---
PROCEDURE NAME: CHEST-PORTABLE - 03/01/2017 PORTABLE CHEST X-RAY: COMPARISON: 02/28/2017. FINDINGS: Stable support lines and tubes. Stable diffuse bilateral interstitial infiltrates. Stable coarse consolidation with probable cavitary changes at the left lung base. IMPRESSION: No change from prior.
[2017-03-01] MEDS: MUCOMYST 20% INH SCH ×2 (08:31→19:41)
[2017-03-01] MEDS: PROTONIX IV SCH ×2 (10:10→23:52)
[2017-03-01] MEDS: SODIUM CHLORIDE 0.9% INJ SCH ×2 (10:10→23:52)
--- NOTE | 2017-03-01 11:32 | PROGRESS NOTE ---
DATE: 03/01/2017 SUBJECTIVE: This patient is sedated and intubated, some of her fingertips and toes have a bluish coloration, also they are cold. Her heart rate and respiratory rate are elevated and the PCO2 is high. No family members at the bedside. This patient has poor prognosis. OBJECTIVE: Vital Signs: Temperature 98.6 degrees, pulse 131, respiratory rate 28, blood pressure 123/72, oxygen saturation 95% on 100% oxygen flow mechanical ventilation. HEENT: Head normocephalic. No trauma. PERRLA. Neck: Supple. No JVD. No masses. Central trachea. Cardiovascular: RRR. Tachycardic. Chest: Bilateral coarse breath sounds. Decreased breath sounds at the bases with bilateral generalized rhonchi, more prominent at the level of the left lung base. Abdomen: Soft. It is distended. Decreased bowel sounds. Extremities: No edema, but there is a bluish coloration at the level of the toes and some of her fingertips. They are cold. Neurological examination: The patient is on mechanical ventilation and sedated. LABORATORY: WBC 36.4, hemoglobin 9, hematocrit 28.9, platelets 265. Sodium 145, potassium 3.6, chloride 100, bicarbonate 36. BUN 14, creatinine 0.2, glucose 145, calcium 7.7, albumin 1.5. ASSESSMENT AND PLAN: 1. Acute hypercapnic respiratory failure on mechanical ventilation. Unfortunately, her CO2, respiratory rate and heart rate still high. She is still getting oxygen flow, 100%. No family members at the bedside. This patient has poor prognosis. Pulmonary Department is following this patient. 2. Multifocal pneumonia. Infectious Disease Department is following this patient. She is on vancomycin, Tamiflu and ceftriaxone. Will continue with the same treatment for now. 3. Recent influenza A. We will continue with Tamiflu by nasogastric tube. 4. Acute systolic heart failure. Aware. Cardiology is following this patient. 5. Alcohol abuse, aware. I am not quite sure how long she has been drinking, but this patient could have some kind of immunosuppressive state due to alcohol. 6. Poor prognosis. No family members at the bedside. I will talk to them if they come to the hospital. CRITICAL CARE TIME: 40 minutes. cc: Shreyas Thapa MD
[2017-03-01] MEDS: VANCOMYCIN 1.2 GM in NS 250 ML IV SCH (18:00)
--- NOTE | 2017-03-01 19:31 | PROGRESS NOTE ---
DATE: 03/01/2017 PRESENT ILLNESS: Patient has influenza A infection complicated by pneumococcal pneumonia and bacteremia. MEDICATIONS: This is day 8 of treatment with vancomycin, Rocephin and Tamiflu. PHYSICAL EXAMINATION: Vital Signs: Temperature is 99.9 degrees, pulse 132, respirations 30, blood pressure 131/70. General: This is an ill-appearing middle-aged female. She is intubated and sedated. She is obtunded. She is very ill-appearing. Lungs: Clear to auscultation. Cardiovascular: Regular heart rate. Abdomen: Soft and nontender. Extremities: The patient has a PICC in her right arm. The site is not erythematous or purulent. The peripheral parts of the arms and legs are cool. LAB AND X-RAY: The CBC for today has white count 36,430, hemoglobin 9, platelet count 265,000. Blood gases show pH of 7.29, a PO2 of 112, pCO2 of 94. Creatinine 0.2. GFR is greater than 60. Blood cultures are pending. Sputum culture is no growth thus far. ASSESSMENT AND PLAN: Patient has overwhelming pulmonary process which includes influenza A and pneumococcal pneumonia and bacteremia. The plan is to continue with the current treatment. COMORBIDITIES: Include cigarette smoking, COPD, asthma and alcohol consumption. cc: David Howard MD
[2017-03-01] MEDS ORDERED: LANOXIN IV ONE (23:55)
[2017-03-01] MEDS ORDERED: NS 500 ML IV ONE (23:55)
[2017-03-02] MEDS: MORPHINE IV PRN ×4 (00:52→20:42)
[2017-03-02] MEDS: DIPRIVAN 1% 1,000 MG/100 ML BOTTLE IV SCH ×6 (00:53→20:47)
[2017-03-02] MEDS: OFIRMEV 1000 MG/ISOTONIC SOLN 1,000 MG/100 ML BOTTLE IV PRN ×4 (00:58→22:24)
[2017-03-02] MEDS ORDERED: TORADOL IV ONE (01:14)
[2017-03-02] MEDS: XOPENEX NEB INH SCH ×6 (03:31→23:08)
[2017-03-02] MEDS: ATROVENT NEB INH SCH ×6 (03:31→23:08)
[2017-03-02 04:14] LABS: ALLEN TEST YES; BE 17.7 mmoll (-3.0-3.0); BLOOD TYPE ARTERIAL; DRAW SITE R RADIAL; METHB 1.8 % (0.0-1.5); O2(CT) 12.2 mL/dL (15.0-23.0); PO2(98.6) 81 mmHg (60-100); SAMPLE BLOOD; SAO2 97.4 % (95.0-100.0); SRATE 20 BPM; THB 9.2 g/dL (11.5-17.4); TVOL 370 mL; pH(98.6) 7.34 (7.35-7.45)
[2017-03-02 04:15] LABS: MODALITY VENTILATOR
[2017-03-02 04:16] LABS: PCO2(98.6) 86 mmHg (35-45)
[2017-03-02] MEDS: VANCOMYCIN 1.2 GM in NS 250 ML IV SCH ×2 (05:08→18:17)
[2017-03-02 05:21] LABS: HEMOGLOBIN 8.4 g/dL (12.0-16.0); MCH 23.5 PG (27-31); MCHC 31.1 g/dL (33-37); MCV 75.6 FL (81-99); MPV 11.6 FL (7.4-10.4); RBC 3.57 XMIL (4.2-5.4)
[2017-03-02 06:16] LABS: AGAP 7; ALBUMIN 1.5 g/dL (3.5-5.0); ALKALINE PHOSPHATASE 129 U/L (32-104); BUN 16 mg/dL (8-22); CALCIUM 7.7 mg/dL (8.8-10.2); CHLORIDE 97 mmol/L (98-107); COSMO 283; GOT 13 U/L (10-30); GPT 8 U/L (10-36); SODIUM 141 mmol/L (136-145); TCO2 37 mmol/L (25-35); TOTAL BILIRUBIN 0.21 mg/dL (0.20-1.00); TOTAL PROTEIN 5.7 g/dL (6.3-8.3)
[2017-03-02] MEDS: ROCEPHIN 1 GM/NS 1 GM/50 ML IVPB IV SCH ×2 (06:31→18:11)
[2017-03-02] MEDS: MUCOMYST 20% INH SCH ×2 (08:03→19:28)
--- NOTE | 2017-03-02 08:03 | Diag Imaging Result Document ---
PROCEDURE NAME: CHEST-PORTABLE - 03/02/2017 SINGLE FRONTAL RADIOGRAPH OF THE CHEST: COMPARISON: 03/01/2017. FINDINGS: ET tube and right central line are in stable position. NG tube projects below the diaphragm and is assumed to be in the stomach. Diffuse bilateral consolidations are approximately stable and have a basilar predominance. Course consolidation with cavitary changes at the left lower lung zone have not changed. No new consolidation is identified. Cardiac silhouette is stable. IMPRESSION: Stable chest.
--- NOTE | 2017-03-02 08:55 | PROGRESS NOTE ---
DATE: 03/02/2017 SUBJECTIVE: This patient is still sedated and intubated. No acute events overnight, poor prognosis. She is still tachycardic and tachypneic. CO2 is still elevated. Yesterday I had a conversation with the family members, the , and I told them about her situation, poor prognosis and they seem to understand. Today I will talk to them again to see if they want to do any changes about her cold status. OBJECTIVE: Vital Signs: Temperature 99.7 degrees, pulse 129, respiratory rate 31, blood pressure 141/81, oxygen saturation 92 on 100% oxygen flow mechanical ventilation. HEENT: Head normocephalic. No trauma. PERRLA. Neck: Supple. No JVD. No masses. Central trachea. Cardiovascular: RRR. Tachycardic. Chest: Bilateral coarse breath sounds, decreased breath sounds at the bases with bilateral generalized rhonchi, more prominent at the level of the left lung base. Abdomen: Soft. It is distended. Decreased bowel sounds. Extremities: No edema but there is a bluish coloration mostly at the level of the toes and fingertips. Also there is coldness at the level of the lower extremities and distal upper extremities. Neurological: The patient is on mechanical ventilation and sedated. LABORATORY: WBC 33, hemoglobin 8.4, hematocrit 27, platelets 289,000. Sodium 141, potassium 4, chloride 97, bicarbonate 37, BUN 16, creatinine 0.3, glucose 116, calcium 7.7, albumin 1.5. ASSESSMENT AND PLAN: 1. Acute hypercapnic respiratory failure on mechanical ventilation. Unfortunately this patient's CO2 is still high. She is still getting oxygen flow 100%. Yesterday I had a conversation about this patient with the family, especially her , and I told them about the poor prognosis. Pulmonary department is following this patient. 2. Multifocal pneumonia. Infectious disease department is following this patient. She is on vancomycin, Tamiflu, and ceftriaxone. Will continue with the same management for now. 3. Recent influenza A. We will continue with Tamiflu. 4. Acute systolic heart failure, aware. Cardiology has been monitoring this patient. 5. Alcohol abuse, aware. Yesterday I talked to the family and they told me that this patient is an alcoholic. 6. Poor prognosis. Family members are aware of this. I will try to talk again today with the to see if we can change the code status. CRITICAL CARE TIME: 35 minutes. cc: Shreyas Thapa MD
[2017-03-02] MEDS: SODIUM CHLORIDE 0.9% INJ SCH (09:04)
[2017-03-02] MEDS: TAMIFLU PO SCH ×2 (09:05→20:18)
[2017-03-02] MEDS: LANOXIN PO SCH (09:05)
[2017-03-02] MEDS: PROTONIX IV SCH ×2 (09:05→20:18)
[2017-03-02] MEDS: LOVENOX SUBQ SCH (09:12)
[2017-03-02] MEDS: ATIVAN IV PRN ×2 (09:53→16:22)
[2017-03-02] MEDS: ALBUMIN 25% IV SCH ×3 (09:53→22:34)
[2017-03-02] MEDS: LASIX IV SCH ×3 (09:53→20:48)
[2017-03-02] MEDS ORDERED: NS 250 ML ONE (16:06)
[2017-03-02] MEDS: MERREM 500 MG in NS 50 ML IV SCH (20:18)
[2017-03-02] MEDS: MYCAMINE 100 MG in NS 100 ML IV SCH (21:00)
--- NOTE | 2017-03-02 22:03 | PROGRESS NOTE ---
DATE: 03/02/2017 PRESENT ILLNESS: The patient is being treated for influenza A infection complicated by a pneumococcal pneumonia and bacteremia. In view of the fact that the patient still has leukocytosis and is febrile, she may have developed another superimposed infection. MEDICATIONS: This is day 9 of treatment with vancomycin, Rocephin and Tamiflu. PHYSICAL EXAMINATION: Vital Signs: Temperature is 101.5 degrees, pulse 135, respirations 33, blood pressure 139/74. Generally: This is an ill-appearing young female. She is intubated and sedated. She made no spontaneous movements. Lungs: Bilateral rhonchi. Cardiovascular: Heart rate is rapid and regular. Abdomen: Soft. The abdomen seems somewhat protuberant. Extremities: The patient has a has a PICC in her arm. The site is not erythematous or swollen. LABORATORY AND X-RAY: Chest x-ray shows bilateral consolidations. Sputum and blood cultures are pending. Creatinine 0.3, GFR is greater than 60. CBC today shows a white count of 33,150, hemoglobin 8.4 and platelet count 289,000. Blood gases show a pH of 7.34, PO2 of 81, and a pCO2 of 86. ASSESSMENT AND PLAN: 1. I am going to substitute meropenem for Rocephin, and I am going to add micafungin and continue Tamiflu and vancomycin. 2. Comorbidities: Cigarette smoking, chronic obstructive pulmonary disease, asthma, alcohol consumption. cc: David Howard MD
[2017-03-03] MEDS: DIPRIVAN 1% 1,000 MG/100 ML BOTTLE IV SCH ×6 (00:57→21:10)
[2017-03-03] MEDS: MORPHINE IV PRN ×3 (01:41→21:10)
[2017-03-03] MEDS ORDERED: TORADOL IV ONE (01:49)
[2017-03-03] MEDS: XOPENEX NEB INH SCH ×6 (03:34→22:53)
[2017-03-03] MEDS: ATROVENT NEB INH SCH ×6 (03:34→22:53)
[2017-03-03] MEDS: LASIX IV SCH (03:49)
[2017-03-03] MEDS: ALBUMIN 25% IV SCH (03:51)
[2017-03-03] MEDS: MERREM 500 MG in NS 50 ML IV SCH ×3 (04:19→19:55)
[2017-03-03 04:58] LABS: ALLEN TEST YES; BE 24.7 mmoll (-3.0-3.0); BLOOD TYPE ARTERIAL; DRAW SITE R RADIAL; O2(CT) 10.6 mL/dL (15.0-23.0); PO2(98.6) 59 mmHg (60-100); SAMPLE BLOOD; SAO2 94.3 % (95.0-100.0); SRATE 20 BPM; THB 8.3 g/dL (11.5-17.4); TVOL 370 mL; pH(98.6) 7.41 (7.35-7.45)
[2017-03-03 04:59] LABS: MODALITY VENTILATOR
[2017-03-03 05:00] LABS: PCO2(98.6) 83 mmHg (35-45)
[2017-03-03] MEDS: VANCOMYCIN 1.2 GM in NS 250 ML IV SCH (05:42)
[2017-03-03 07:08] LABS: BASO% 0.1 % (0.0-0.8); EOS% 0.6 % (0.0-10.0); HEMATOCRIT 25.7 % (37.0-47.0); IMM GRAN# 0.33 X1000 (0.0-0.04); IMM GRAN% 0.9 % (0.0-0.5); LYMPH# 1.09 X1000 (1.2-3.4); LYMPH% 3.1 % (20.5-51.1); MANUAL DIFF NEEDED? YES; MCH 23.5 PG (27-31); MCHC 31.1 g/dL (33-37); MCV 75.6 FL (81-99); MONO# 1.04 X1000 (0.11-0.59); MPV 11.6 FL (7.4-10.4); NEUT% 92.3 % (42.2-75.2); PLT 341 X1000 (130-400)
[2017-03-03 07:37] LABS: BANDS 4 % (0-1); LYMPHS 4 % (21-51)
[2017-03-03 07:50] LABS: AGAP 10; ALBUMIN 2.8 g/dL (3.5-5.0); ALKALINE PHOSPHATASE 143 U/L (32-104); BUN 16 mg/dL (8-22); CHLORIDE 94 mmol/L (98-107); COSMO 292; GOT 13 U/L (10-30); GPT 6 U/L (10-36); POTASSIUM 3.6 mmol/L (3.5-5.1); SODIUM 146 mmol/L (136-145); TCO2 42 mmol/L (25-35); TOTAL BILIRUBIN 0.33 mg/dL (0.20-1.00); TOTAL PROTEIN 6.6 g/dL (6.3-8.3)
[2017-03-03] MEDS: MUCOMYST 20% INH SCH ×2 (07:50→22:53)
[2017-03-03] MEDS ORDERED: NORCURON IV ONE (08:08)
--- NOTE | 2017-03-03 08:34 | Diag Imaging Result Document ---
PROCEDURE NAME: CHEST-PORTABLE - 03/03/2017 SINGLE FRONTAL RADIOGRAPH OF THE CHEST: COMPARISON: 03/02/2017. FINDINGS: Right central line is in stable position. ET tube is stable. NG tube projects below the diaphragm and out of the field of view. Bilateral consolidations with a basilar predominance are stable. Cavitary consolidation at the left lung base is unchanged. No new consolidations are identified. Cardiac silhouette is stable. IMPRESSION: Stable chest.
[2017-03-03] MEDS: LOVENOX SUBQ SCH (08:38)
[2017-03-03] MEDS: TAMIFLU PO SCH ×2 (08:38→20:05)
[2017-03-03] MEDS: SODIUM CHLORIDE 0.9% INJ SCH (08:38)
[2017-03-03] MEDS: PROTONIX IV SCH ×2 (08:38→20:05)
[2017-03-03] MEDS: LANOXIN PO SCH (08:38)
--- NOTE | 2017-03-03 09:18 | Diag Imaging Result Document ---
PROCEDURE NAME: CHEST-PORTABLE - 03/03/2017 PORTABLE CHEST, 0815 HOURS: Compared with previous exam of the same morning () at 0525 hours. FINDINGS: Endotracheal tube, nasogastric tube, and PIC-line remain in place. There are extensive bilateral infiltrates which appear stable. This includes cavitary infiltrate in the left lower lung. There is a medium left pleural effusion and/or pleural thickening which appears stable. There is no pneumothorax identified. The left heart border is largely obscured but heart size appears grossly stable. IMPRESSION: Stable exam compared to the previous exam of same morning. Extensive bilateral infiltrates, including cavitary infiltrate at left lower lung. Medium left pleural effusion and/or pleural thickening. [facility]
--- NOTE | 2017-03-03 12:20 | PROGRESS NOTE ---
DATE: 03/03/2017 SUBJECTIVE: This patient is still sedated and intubated. No acute events overnight. Poor prognosis. I will talk to the family today about her prognosis. The O2 saturation has been low. The CO2 is still high. OBJECTIVE: Vital Signs: Temperature was 100.2, pulse 138, respiratory rate 32, blood pressure 173/99 on the monitor. Oxygen saturation 80% on mechanical ventilation 100% oxygen flow/FiO2. HEENT: Head normocephalic. No trauma. PERRLA. Neck: Supple. I can see JVD. No masses. Central trachea. Cardiovascular: RRR. Tachycardic. Chest: Bilateral coarse breath sounds. Decreased breath sounds at the bases with bilateral rhonchi more prominent at the level of the left lung base. Abdomen: Soft, distended. Decreased bowel sounds. Extremities: No edema. There is a bluish coloration mostly at the level of the toes and fingertips. Also coldness mostly at the level of the distal upper and lower extremities. Neurological: The patient is on mechanical ventilation and sedated. LABORATORY: WBC 35, hemoglobin 8, hematocrit 25.7, platelets 341,000. Sodium 146, potassium 3.6, chloride 94, bicarbonate 42, BUN 16, creatinine 0.3. Calcium 8, glucose 103. Albumin 2.8. ASSESSMENT AND PLAN: 1. Acute hypercapnic respiratory failure on mechanical ventilation. Unfortunately this patient's CO2 is still high. Also she has a low oxygen saturation even though she is on mechanical ventilation 100% FiO2. I will try to talk to the family today given her poor prognosis. 2. Multifocal pneumonia. Infectious Disease Department is following this patient. They have switched the antibiotics. We will continue with the same management for now. 3. Recent influenza A. We will continue with Tamiflu. 4. Acute systolic heart failure. Aware. Cardiology has been monitoring this patient. 5. Alcohol abuse. Aware. Two days ago I had a conversation with the family and they told me that this patient is an alcoholic and she was drinking recently even though she was on treatment. 6. Poor prognosis. Family members are aware of this. I will try to talk again today to see if we can change the code status and probably put this patient on hospice. CRITICAL CARE TIME: 40 minutes. cc: Shreyas Thapa MD
--- NOTE | 2017-03-03 16:10 | PROGRESS NOTE ---
DATE: 03/03/2017 PRESENT ILLNESS: The patient has been treated for influenza A complicated by pneumococcal pneumonia and bacteremia. She appears to have developed another illness superimposed on the 1st 2 infections I mentioned. MEDICATIONS: This is day 10 of vancomycin and day 1 of meropenem and micafungin. PHYSICAL EXAMINATION: Vital Signs: Temperature is 97.3 degrees, pulse 129, respirations 26, blood pressure 104/70. General: This is an ill-appearing, young female. She is intubated and sedated. Lungs: There were coarse rhonchi on the right side and what might have been a pleural rub on the left side. Cardiovascular: Irregular, rapid heart rate. Abdomen: Soft and apparently not tender. Extremities: The distal extremities are cool and some are becoming cyanotic. The patient's extremities appear mottled distally. LAB AND X-RAY: There is no new x-ray. The creatinine is 0.3, GFR is greater than 60. CBC shows a white count of 35,140, hemoglobin 8, and platelet count 341,000. Alkaline phosphatase is 143. Sputum grew normal mazin and yeast. Blood cultures are negative. Blood gases show a pH of 7.41, a PO2 of 59, and a pCO2 of 83. ASSESSMENT AND PLAN: The patient has an overwhelming pulmonary process superimposed on influenza and pneumococcal infection she also now has multiple organ system failure. I plan to continue the above mentioned antimicrobial agents, namely vancomycin, micafungin, and meropenem. The patient's comorbidities include cigarette smoking, chronic obstructive pulmonary disease, asthma, and alcohol consumption. cc: David Howard MD
[2017-03-03] MEDS: OFIRMEV 1000 MG/ISOTONIC SOLN 1,000 MG/100 ML BOTTLE IV PRN (17:00)
--- NOTE | 2017-03-03 19:18 | PALLIATIVE CARE PROGRESS NOTE ---
DATE: 03/03/2017 SUBJECTIVE: Ms. Flynn remains sedated and intubated. The family is at the bedside. OBJECTIVE: HEENT: Atraumatic, normocephalic. Neck: Supple. Cardiovascular: Increased rate. Regular rhythm. Pulmonary: Lung sounds her diminished and coarse with scattered rhonchi. Abdomen: Distended, soft. Extremities: Mottling noted to finger tips and toes. Extremities are cool. ASSESSMENT AND PLAN: Ms. Flynn's prognosis is very poor. The family has decided to make her a DNR level 1. Hospice has been consulted and a hospice administrative representative has made a visit with the family today. Plan is to compassionately extubate Ms. Flynn. The family has requested that this be done by tomorrow morning as she has a brother who is trying to make travel arrangements from [place]. The process of extubation and initiating hospice was explained. Family had no further questions. The palliative care team will continue to follow. Dictated by BANDAR Nagel for Heriberto Julien MD cc: BANDAR Nagel MD
[2017-03-03] MEDS: MYCAMINE 100 MG in NS 100 ML IV SCH (20:04)
[2017-03-03] MEDS: VANCOMYCIN 1.3 GM in NS 250 ML IV SCH (20:46)
[2017-03-04] MEDS: MORPHINE IV PRN ×3 (02:00→11:03)
[2017-03-04] MEDS: DIPRIVAN 1% 1,000 MG/100 ML BOTTLE IV SCH ×3 (02:08→10:05)
[2017-03-04] MEDS: MERREM 500 MG in NS 50 ML IV SCH ×2 (03:31→12:14)
[2017-03-04] MEDS: XOPENEX NEB INH SCH ×3 (03:44→11:41)
[2017-03-04] MEDS: ATROVENT NEB INH SCH ×3 (03:44→11:41)
[2017-03-04 04:34] LABS: ALLEN TEST YES; BE 24.6 mmoll (-3.0-3.0); BLOOD TYPE ARTERIAL; DRAW SITE R RADIAL; METHB 1.7 % (0.0-1.5); O2(CT) 11.7 mL/dL (15.0-23.0); PO2(98.6) 55 mmHg (60-100); SAMPLE BLOOD; SAO2 90.8 % (95.0-100.0); SRATE 20 BPM; THB 9.5 g/dL (11.5-17.4); TVOL 370 mL; pH(98.6) 7.34 (7.35-7.45)
[2017-03-04 04:37] LABS: MODALITY VENTILATOR; PCO2(98.6) 101 mmHg (35-45)
[2017-03-04 06:59] LABS: AGAP 9; ALBUMIN 2.6 g/dL (3.5-5.0); ALKALINE PHOSPHATASE 155 U/L (32-104); BUN 27 mg/dL (8-22); CALCIUM 8.1 mg/dL (8.8-10.2); CHLORIDE 96 mmol/L (98-107); COSMO 297; GOT 15 U/L (10-30); GPT 9 U/L (10-36); POTASSIUM 4.6 mmol/L (3.5-5.1); SODIUM 145 mmol/L (136-145); TCO2 40 mmol/L (25-35)
[2017-03-04 07:13] LABS: BASO% 0.4 % (0.0-0.8); EOS# 0.15 X1000 (0.0-0.7); EOS% 0.5 % (0.0-10.0); HEMATOCRIT 27.2 % (37.0-47.0); HEMOGLOBIN 8.4 g/dL (12.0-16.0); IMM GRAN# 0.47 X1000 (0.0-0.04); IMM GRAN% 1.5 % (0.0-0.5); LYMPH# 1.08 X1000 (1.2-3.4); LYMPH% 3.5 % (20.5-51.1); MANUAL DIFF NEEDED? YES; MCH 23.9 PG (27-31); MCHC 30.9 g/dL (33-37); MCV 77.5 FL (81-99); MONO# 1.27 X1000 (0.11-0.59); MONO% 4.1 % (1.7-9.3); MPV 12.1 FL (7.4-10.4); PLT 401 X1000 (130-400); RBC 3.51 XMIL (4.2-5.4)
[2017-03-04 07:39] LABS: BANDS 16 % (0-1); LYMPHS 8 % (21-51)
[2017-03-04 07:41] LABS: HYPOCHROM 2+
[2017-03-04] MEDS: MUCOMYST 20% INH SCH (07:56)
--- NOTE | 2017-03-04 08:10 | Diag Imaging Result Document ---
PROCEDURE NAME: CHEST-PORTABLE - 03/04/2017 SINGLE FRONTAL RADIOGRAPH OF THE CHEST: COMPARISON: 03/03/2017. FINDINGS: ET tube is in stable position. Right PICC line is stable. There has been development of a pneumothorax at the left lung base. It appears to be loculated. It occupies approximately 20% of the left hemithorax. The cavitary consolidation involving the left lower lobe is again noted. Consolidation throughout the right lung with a basilar predominance is essentially stable given differences in exposure. No new consolidations identified otherwise. Cardiac silhouette is stable. IMPRESSION: 1. Development of a pneumothorax at the left lung base as described that appears to be loculated. This critical result was reported to the patient's nurse, Cathie Jones, at approximately 0730 hours to be immediately relayed to Dr. Julien.
[2017-03-04] MEDS: VANCOMYCIN 1.3 GM in NS 250 ML IV SCH (08:37)
[2017-03-04] MEDS: SODIUM CHLORIDE 0.9% INJ SCH (08:37)
[2017-03-04] MEDS: PROTONIX IV SCH (08:37)
[2017-03-04] MEDS: LANOXIN PO SCH (08:37)
[2017-03-04] MEDS: TAMIFLU PO SCH (08:37)
[2017-03-04] MEDS: LOVENOX SUBQ SCH (09:56)
[2017-03-04 12:54] VITALS: BP 115/75
[2017-03-04] MEDS ORDERED: MORPHINE IV ONE (12:59)
[2017-03-04] MEDS ORDERED: MORPHINE IV PRN ×2 (13:00→13:32)
--- NOTE | 2017-03-04 18:42 | DISCHARGE SUMMARY ---
ADMISSION DATE: 02/21/2017 DISCHARGE DATE: 03/04/2017 DISCHARGE DIAGNOSES: Patient demised at 13:41 on 03/04/2017 secondary to 1. Acute hypercapnic respiratory failure secondary to multifocal pneumonia. 2. Multifocal pneumonia. 3. Recent influenza A. 4. Acute systolic heart failure. 5. Alcohol abuse. HOSPITAL COURSE: A 51-year-old female with a past medical history of hypertension, asthma, duodenal ulcer with GI bleed, medication noncompliance was admitted on 02/21/2017. When she was admitted, the patient stated that in January she was diagnosed with bronchitis and she was discharged with antibiotics. Also she was diagnosed with influenza A and the patient did not take the Tamiflu for this. The patient stated that after taking her azithromycin she felt better but then she started complaining again of shortness of breath, to the point that she was unable to smoke her cigarettes for about 2 weeks. Now she was admitted with multifocal pneumonia. She was admitted with a diagnosis of sepsis, acute hypoxemic respiratory failure, multifocal pneumonia. Infectious Disease Department and Pulmonary Department were on board. She was in ICU and ended up on mechanical ventilation because the patient had severe respiratory failure. This patient was not improving on a daily basis. Even though she was on mechanical ventilation with high oxygen flow, this patient's oxygen was trending down and also her pCO2 was really high. We had a conversation with the family especially her sister and una about her poor prognosis. After discussing the case for a few days, they decided to go ahead and withdraw care. The endotracheal tube was removed on 03/04/2017 at 13:13 and this patient demised at 13:41. I personally evaluated this patient at the bedside, no heart sounds were heard with the stethoscope, no signs of respiratory movement, no reflexes. Family were notified. cc: Shreyas Thapa MD
== END 2017-03-04 13:41 | disposition expired ==
LOC: ED 08:08 → EDIPHOLD 10:32 → SUATTDRO 10:32 → 3S 22:25 → ICU 02-23 11:12
PROVIDERS: ATTEND Internal Medicine